=== PATIENT | male | born 1990 | race Caucasian/White ===

== ENCOUNTER 2019-02-07 18:33 | Inpatient (IN) | payer MEDICAID, SELFPAY ==
[2019-02-07] VITALS (72 sets, daily range): BP systolic 102–232; BP diastolic 52–211; PULSE 77–135; RESP 9–36; O2SAT 92–100
[2019-02-07] MEDS: Succinylcholine 100 MG/5 ML SYR IVP (18:47)
[2019-02-07] MEDS: Vecuronium 10 MG VIAL IVP (18:54)
[2019-02-07] MEDS: MIDAZOLAM 50 MG in Normal Saline 90 ML 7.128 MG IV (18:56)
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
[2019-02-07 19:36] LABS: Abs Immature Grans 0.06 k/cumm (0.0-0.09); Absolute Basophil Count 0.04 k/cumm (0.0-0.2); Absolute Eosinophil Count 0.14 k/cumm (0.0-0.7); Absolute Lymphocyte Count 2.09 k/cumm (1.2-3.4); Absolute Monocyte Count 0.36 k/cumm (0.11-0.7); Absolute Neutrophil Count 5.52 k/cumm (1.2-6.7); Basophils % 0.5; Eosinophils % 1.7; HCT 49.6 % (40.0-50.0); HGB 17.2 g/dL (13.5-17.5); Immature Grans % 0.7; Lymphocytes % 25.5; Mean Corp. HGB Concentration 34.7 g/dL (32.0-36.0); Mean Corpuscular Hemoglobin 30.7 pg (27.0-33.0); Mean Corpuscular Volume 88.4 fL (80-95); Mean Platelet Volume 9.9 fL (8.0-11.0); Monocytes % 4.4; Neutrophils % 67.2; Platelet Count 306 x1000/uL (130-400); RBC 5.61 m/cumm (4.50-6.00); RBC Distribution Width 13.2 % (11.8-14.1); White Blood Cell Count 8.21 k/cumm (4.4-10.8)
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
[2019-02-07 19:46] LABS: *AMPHETAMINES SCREEN URINE Negative (Negative); *BARBITURATES SCREEN URINE Negative (Negative); *BENZODIAZEPINES SCREEN URINE POSITIVE (Negative); Cannabinoids THC POSITIVE (Negative); Cocaine Screen,Urine Negative (Negative); METHADONE URINE SCREEN Negative (Negative); OPIATES URINE SCREEN POSITIVE (Negative)
[2019-02-07 19:52] LABS: ALT 26 U/L (16-63); AST 25 U/L (15-37); Albumin 4.5 g/dL (3.4-5.0); Alkaline Phosphatase 72 U/L (46-116); Anion Gap 5.7 mmol/L (3-11); BUN 6 mg/dL (7-18); Bilirubin, Total 0.5 mg/dL (0.2-1.0); CO2 27.3 mmol/L (21.0-32.0); CREATININE 0.67 mg/dL (0.70-1.30); Calcium 9.7 mg/dL (8.5-10.1); Chloride 106 mmol/L (98-107); ETHANOL BLOOD 161.7 mg/dL (<3); Glucose 107 mg/dL (74-106); Potassium 3.3 mmol/L (3.5-5.1); Sodium 139 mmol/L (136-145); Total Protein 8.4 g/dL (6.4-8.2)
[2019-02-07 19:53] LABS: Salicylate 5.9 mg/dL (2.8-20.0)
[2019-02-07] MEDS: Omnipaque 350 MG/ML 100 ML BTL IJ (19:59)
[2019-02-07 20:00] LABS: Troponin I < 0.05 ng/Ml (<0.06)
[2019-02-07 20:01] LABS: Tricyclic Antidepressants Negative (Negative)
[2019-02-07 20:01] LABS: Acetaminophen < 2 ug/mL (10-30)
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
[2019-02-07] MEDS: fentaNYL 1,000 MCG in Normal Saline 80 ML 8.91 MCG IV (20:13)
[2019-02-07] MEDS: PROPOFOL 1,000 MG/100 ML BTL 37.5 MG (20:57)
[2019-02-07] MEDS: PROPOFOL 1,000 MG/100 ML BTL 10.692 MG IVPB (21:05)
[2019-02-07] MEDS: PIPERACILLIN/TAZO 4.5 GM in Normal Saline 100 ML IVPB (21:41)
[2019-02-07 21:56] LABS: HCO3 (Venous) 26 mmol/L (22-28); O2 Sat (Venous) 98 % (70-80); TCO2 (Venous) 22 mmol/L (22-29); pCO2 (Venous) 44 mm/Hg (34-47); pH (Venous) 7.39 (7.32-7.43); pO2 (Venous) 111 mm/Hg (28-44)
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
[2019-02-07 23:01] LABS: Troponin I < 0.05 ng/Ml (<0.06)
[2019-02-07] MEDS: PROPOFOL 1,000 MG/100 ML BTL 34.749 MG IVPB (23:47)
[2019-02-08] VITALS (116 sets, daily range): BP systolic 90–133; BP diastolic 45–85; PULSE 47–99; RESP 1–20; TEMP 36.1–36.9; O2SAT 92–100
[2019-02-08] MEDS: PROPOFOL 1,000 MG/100 ML BTL 34.749 MG IVPB (02:21)
[2019-02-08] MEDS: fentaNYL 1,000 MCG in Normal Saline 80 ML 17.826 MCG IV ×2 (03:54→10:32)
[2019-02-08] MEDS: PIPERACILLIN/TAZO 4.5 GM in Normal Saline 100 ML IVPB ×4 (03:59→21:41)
[2019-02-08] MEDS: PROPOFOL 1,000 MG/100 ML BTL 37.422 MG IVPB (04:47)
[2019-02-08] MEDS: Heparin 5,000 UNITS/ML VIAL 5000 UNITS SC ×3 (05:46→21:51)
[2019-02-08 06:52] LABS: HCT 47.6 % (40.0-50.0); HGB 16.2 g/dL (13.5-17.5); Mean Corpuscular Hemoglobin 30.6 pg (27.0-33.0); Mean Corpuscular Volume 89.8 fL (80-95); Mean Platelet Volume 9.8 fL (8.0-11.0); Platelet Count 304 x1000/uL (130-400); RBC Distribution Width 13.4 % (11.8-14.1); White Blood Cell Count 13.97 k/cumm (4.4-10.8)
[2019-02-08 07:07] LABS: ALT 23 U/L (16-63); AST 24 U/L (15-37); Albumin 4.1 g/dL (3.4-5.0); Alkaline Phosphatase 66 U/L (46-116); Anion Gap 12.6 mmol/L (3-11); BUN 10 mg/dL (7-18); Bilirubin, Total 0.7 mg/dL (0.2-1.0); CO2 28.4 mmol/L (21.0-32.0); CREATININE 0.81 mg/dL (0.70-1.30); Calcium 9.2 mg/dL (8.5-10.1); Chloride 109 mmol/L (98-107); Glucose 89 mg/dL (74-106); Potassium 3.5 mmol/L (3.5-5.1); Sodium 150 mmol/L (136-145); Total Protein 7.5 g/dL (6.4-8.2)
[2019-02-08] MEDS: PROPOFOL 1,000 MG/100 ML BTL 40.1 MG IVPB (07:25)
--- NOTE | 2019-02-08 08:50 | PDOC.CMIN ---
Care Management Initial Assess REASON FOR HOSPITALIZATION:: Multisubstance intoxication with AMS and Aspiration PAST MEDICAL HISTORY/PAST SURGICAL HISTORY:: Mulitple substance abuse, reactive airway disease, tobacco dependence PREVIOUS FUNCTIONAL STATUS/SOCIAL/FAMILY SUPPORTS:: Gregorio resides in [place], [place]. His mother resides in [place]. CURRENT FUNCTIONAL STATUS:: Gregorio remains intubated at this time. Has patient been provided with information about the portal?: No Did the patient sign up for the portal?: No CODE STATUS:: Full Code INSURANCE COVERAGE / FINANCIAL ISSUES:: [employer] CURRENT HOME/COMMUNITY SERVICES/EQUIPMENT:: Unable to attain at this time. PRIMARY CARE PHYSICIAN:: Marcell Dupont NP POTENTIAL DISCHARGE NEEDS:: Undetermined at this time. PATIENT/FAMILY EDUCATION NEEDS:: Undetermined at this time. ANTICIPATED BARRIERS TO DISCHARGE:: Undetermined at this time. TRANSPORTATION:: TBD by disposition. PLAN:: Gregorio continues to be closely monitored in the ICU; he remains intubated and sedated at this time, per MD no plan to extubate today; treatment of aspiration pneumonia paramount at this time. CM continues to follow.
[2019-02-08] MEDS: POTASSIUM CHLORIDE/0.45% NACL 1,000 ML 80 MEQ IV (08:52)
[2019-02-08 09:09] LABS: Bilirubin Small (Negative); Blood Trace-intact (Negative); Clarity Clear (Clear); Glucose Negative (Negative); Ketones Trace mg/dL (Negative); Leukocyte Esterase Negative (Negative); Nitrite Negative (Negative); Specific Gravity 1.025 (1.005-1.025); Urobilinogen 0.2 EU/dL (Up TO 0.2); pH 5.5 (5-8)
[2019-02-08 09:21] LABS: Bacteria Negative HPF (Negative); Casts Negative LPF (Negative); Epithelial Cells Negative HPF (Negative); Mucus Trace (Negative); Other Cells Rare Renal (Negative); WBC 0-2 HPF (0-5)
[2019-02-08 09:22] LABS: C & S Indicated? No
[2019-02-08] MEDS: PROPOFOL 1,000 MG/100 ML BTL 53.5 MG IVPB ×2 (09:25→11:10)
[2019-02-08 09:33] LABS: Creatinine,Urine 268.25 mg/dL; Sodium, Urine 21 mmol/L
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
[2019-02-08 11:53] LABS: Procalcitonin < 0.1 ng/mL
[2019-02-08] MEDS: Pantoprazole 40 MG VIAL IVP (12:50)
[2019-02-08] MEDS: PROPOFOL 1,000 MG/100 ML BTL 42.8 MG IVPB (12:50)
[2019-02-08] MEDS: Normal Saline Flush 10 ML SYR IVP ×2 (12:51→17:13)
[2019-02-08] MEDS: Albuterol/Ipratropium 3 ML UPD VIAL UPD ×3 (13:03→23:55)
[2019-02-08 13:33] LABS: Anion Gap 7.7 mmol/L (3-11); BUN 14 mg/dL (7-18); CO2 29.3 mmol/L (21.0-32.0); Calcium 8.7 mg/dL (8.5-10.1); Chloride 110 mmol/L (98-107); Glucose 88 mg/dL (74-106); Potassium 3.8 mmol/L (3.5-5.1); Sodium 147 mmol/L (136-145)
[2019-02-08] MEDS: Normal Saline 1,000 ML 1000 ML IV (14:35)
[2019-02-08] MEDS: PROPOFOL 1,000 MG/100 ML BTL 58.8 MG IVPB (15:21)
[2019-02-08] MEDS: fentaNYL 1,000 MCG in Normal Saline 80 ML 26.73 MCG IV (16:05)
[2019-02-08 16:10] LABS: Osmolality Serum 298 mOsm/kg (275-295)
[2019-02-08 16:12] LABS: Osmolality, Urine 636 mOsm/kg (150-1,150)
[2019-02-08] MEDS: PROPOFOL 1,000 MG/100 ML BTL 40.095 MG IVPB ×3 (17:11→21:48)
[2019-02-08] MEDS: Nicotine 21 MG/24 HR PATCH TD (17:14)
[2019-02-08] MEDS: THIAMINE 100 MG in Normal Saline 100 ML 200 MG IVPB (18:42)
[2019-02-08] MEDS: POTASSIUM CHLORIDE/0.45% NACL 1,000 ML 150 MEQ IV (18:43)
[2019-02-08] MEDS: fentaNYL 1,000 MCG in Normal Saline 80 ML 17.82 MCG IV (21:45)
[2019-02-09] VITALS (39 sets, daily range): BP systolic 90–143; BP diastolic 46–93; PULSE 46–106; RESP 1–22; TEMP 36.4–37.6; O2SAT 95–100
[2019-02-09] MEDS: PROPOFOL 1,000 MG/100 ML BTL 42.8 MG IVPB ×3 (00:08→07:30)
[2019-02-09] MEDS: PIPERACILLIN/TAZO 4.5 GM in Normal Saline 100 ML IVPB ×2 (04:17→10:20)
[2019-02-09] MEDS: Normal Saline 500 ML 1000 ML IV (04:30)
[2019-02-09] MEDS: Heparin 5,000 UNITS/ML VIAL 5000 UNITS SC (06:24)
[2019-02-09] MEDS: fentaNYL 1,000 MCG in Normal Saline 80 ML 17.82 MCG IV (07:00)
[2019-02-09] MEDS: LORazepam 2 MG/ML VIAL 1 MG IVP ×2 (07:10→07:20)
[2019-02-09 07:50] LABS: BE -0.4 mmol/L (-3-3); HCO3 25 mmol/L (22-28); pCO2 44 mmHg (34-47); pO2 81 mmHg (83-108); sO2 96 % (94-98); tCO2 23 mmol/L (22-29)
[2019-02-09 07:52] LABS: FIO2 30 %; Site Left Radial
[2019-02-09 07:53] LABS: pH 7.36 (7.35-7.45)
[2019-02-09] MEDS: Albuterol/Ipratropium 3 ML UPD VIAL UPD (08:11)
--- NOTE | 2019-02-09 08:12 | DI.RAD_ITS ---
EXAM: XR PORTABLE CHEST AP INDICATION: acute respiratory failure; aspiration pneumonia. COMPARISON: CT CHEST/ABD/PEL W from 02/07/2019 TECHNIQUE: 2D digital imaging was performed. FINDINGS: The cardiac and mediastinal contours have a normal appearance. The lungs are moderately well inflate d and appear clear. Leads overlie the chest. An endotracheal tube is seen with the tip at the level of the clavicles. A nasogastric tube projects in the stomach. IMPRESSION: Satisfactory positioning of endotracheal and nasogastric tubes.
[2019-02-09] MEDS: MAGNESIUM SULFATE 8.12 MEQ, MULTIVITAMIN 10 ML, THIAMINE 100 MG, FOLIC ACID 1 MG in Nor... 168.867 MG IV (09:08)
--- NOTE | 2019-02-09 09:15 | CMPROGNOTE_ITS ---
Care Management Progress Note S/O: Gregorio continues to be treated for aspiration pneumonia, he remains sedated at this time, extubation to be attempted today per MD. He will be evaluated for suicidal ideation by a Crisis screener once stable as well as offered inpatient drug treatment resources. Post extubation, Gregorio became agitated and required intervention and code bethea response to remain safely at [facility]. He was screened by plate put in worker Bryanna of [facility] who cleared him to leave. Gregorio will be permitted to leave [place] if he so chooses. CM rec'd request for clothing as Gregorio was leaving AMA, though he remains at [facility] at this time; Dr. Mcnally discussed concerns for Gregorio leaving prior to completing treatment (IV ABX) for aspiration pneumoia. A: 28 year old male admitted to [facility] 02/07/19 for Multisubstance intoxication with AMS and Aspiration P: Gregorio continues to be closely monitored in the ICU, anticipate he will leave AMA, or be discharged home when ready per MD. If he remains at [facility], substance abuse resources and inpatient rehab information will be provided. CM continues to follow.
--- NOTE | 2019-02-09 09:15 | PDOC.CMPRO ---
Care Management Progress Note S/O: Gregorio continues to be treated for aspiration pneumonia, he remains sedated at this time, extubation to be attempted today per MD. He will be evaluated for suicidal ideation by a Crisis screener once stable as well as offered inpatient drug treatment resources. Post extubation, Gregorio became agitated and required intervention and code bethea response to remain safely at [facility]. He was screened by transfer and line up worker Bryanna of [facility] who cleared him to leave. Gregorio will be permitted to leave [place] if he so chooses. CM rec'd request for clothing as Gregorio was leaving AMA, though he remains at [facility] at this time; Dr. Mcnally discussed concerns for Gregorio leaving prior to completing treatment (IV ABX) for aspiration pneumoia. A: 28 year old male admitted to [facility] 02/07/19 for Multisubstance intoxication with AMS and Aspiration P: Gregorio continues to be closely monitored in the ICU, anticipate he will leave AMA, or be discharged home when ready per MD. If he remains at [facility], substance abuse resources and inpatient rehab information will be provided. CM continues to follow.
[2019-02-09 09:27] LABS: Procalcitonin < 0.1 ng/mL
[2019-02-09 09:28] LABS: Calcium 8.2 mg/dL (8.5-10.1)
[2019-02-09 09:29] LABS: Albumin 3.1 g/dL (3.4-5.0); Alkaline Phosphatase 58 U/L (46-116); Anion Gap 7.9 mmol/L (3-11); BUN 16 mg/dL (7-18); Bilirubin, Total 0.7 mg/dL (0.2-1.0); CO2 28.1 mmol/L (21.0-32.0); CREATININE 1.01 mg/dL (0.70-1.30); Chloride 110 mmol/L (98-107); Glucose 78 mg/dL (74-106); Potassium 3.9 mmol/L (3.5-5.1); Sodium 146 mmol/L (136-145); Total Protein 6.1 g/dL (6.4-8.2)
[2019-02-09 09:30] LABS: ALT 19 U/L (16-63); AST 27 U/L (15-37); HCT 42.1 % (40.0-50.0); HGB 13.8 g/dL (13.5-17.5); RBC 4.47 m/cumm (4.50-6.00); White Blood Cell Count 9.45 k/cumm (4.4-10.8)
[2019-02-09 09:31] LABS: Mean Corp. HGB Concentration 32.8 g/dL (32.0-36.0); Mean Corpuscular Hemoglobin 30.9 pg (27.0-33.0); Mean Corpuscular Volume 94.2 fL (80-95); Platelet Count 182 x1000/uL (130-400); RBC Distribution Width 13.8 % (11.8-14.1)
[2019-02-09 09:45] LABS: Absolute Lymphocyte Count 3.17 k/cumm (1.2-3.4); Absolute Monocyte Count 0.97 k/cumm (0.11-0.7); Absolute Neutrophil Count 4.77 k/cumm (1.2-6.7); Lymphocytes % 33.5; Monocytes % 10.3; Neutrophils % 50.5
[2019-02-09 09:46] LABS: Abs Immature Grans 0.02 k/cumm (0.0-0.09); Absolute Basophil Count 0.04 k/cumm (0.0-0.2); Absolute Eosinophil Count 0.48 k/cumm (0.0-0.7); Basophils % 0.4; Eosinophils % 5.1; Immature Grans % 0.2
[2019-02-09] MEDS: PROPOFOL 1,000 MG/100 ML BTL 37.4 MG IVPB (10:04)
[2019-02-09] MEDS: Normal Saline Flush 10 ML SYR IVP (10:21)
--- NOTE | 2019-02-09 11:00 | W.PM.PROGNOT ---
Date of Service Date of service: 02/09/19 Time of Service: 11:00 Assessment and Plan Assessment and plan (1) Aspiration pneumonia: Status: Acute Assessment and plan: Patient was treated with IV Zosyn. However he left the hospital AGAINST MEDICAL ADVICE prior to being able to set up an appropriate discharge plan and follow-up. Qualifiers: Aspiration pneumonia type: unspecified Laterality: bilateral Lung location: unspecified part of lung Qualified Code(s): J69.0 - Pneumonitis due to inhalation of food and vomit (2) Multiple substance abuse: Status: Acute Assessment and plan: Patient is a known heroin abuser by his own admission. According to his brother he is using 7-8 bags of heroin a day. Patient has declined referral for outpatient substance abuse treatment. (3) Altered mental status: Status: Acute Assessment and plan: His initial altered mental status was contributed by his acute alcohol intoxication and drug use. His altered mental status this morning was secondary to sedatives required to keep him intubated. By this afternoon medications he cleared and he had been in evaluated by mental health and deemed not appropriate for involuntary hospitalization. Qualifiers: Altered mental status type: delirium Qualified Code(s): R41.0 - Disorientation, unspecified (4) Alcohol intoxication: Status: Acute Assessment and plan: Resolved Qualifiers: Complication of substance-induced condition: with unspecified complication Qualified Code(s): F10.929 - Alcohol use, unspecified with intoxication, unspecified Subjective Subjective Interval history since last seen: Patient remained intubated and sedated on fentanyl and propofol drip earlier this morning. By mid to late morning we had discontinued his sedatives and after about 20 minutes he was combative. His rapid shallow breathing index was acceptable and as his oxygenation and ventilation were stable on spontaneous breathing trial and as his chest x-ray had improved it was decided that he was ready for extubation. Patient was extubated and immediately became combative and agitated and swearing at the staff and threatening to leave AGAINST MEDICAL ADVICE. Patient pulled out his IVs and his Perrin had been removed by the nursing staff. Patient's brother try to calm him down and together with the brother and the nursing staff we tried to explain the patient that he needed continued hospitalization for treatment of his aspiration pneumonia. Patient became demanding and unreasonable and threatening to leave AGAINST MEDICAL ADVICE while at the same time demanding that he be given IV pain medications even though he had pulled out his IVs. I felt that he was not competent to leave the hospital safely as I felt he was still under the influence of the propofol and the fentanyl. When he became violently combative with the nurses a karina pineda was called. Patient required four-point restraints to control him and was chemically sedated with Haldol 5 mg IM x1 and 10 mg IM x1 dose. He was also given Ativan 4 mg IM and fentanyl 100 mcg IM. He eventually calm down and seemed to be able to be reasoned with and initially was agreeable to remain in the hospital for 1 more night while we continued IV antibiotics. He initially agreed to let the nurses replace his IV. Eventually in the afternoon he became more agitated and combative and refused to remain in the hospital or to allow any IV access. Patient had been seen by mental health services and cleared from a psychiatric standpoint to be discharged from the hospital. As the patient had been off his propofol and fentanyl drip for a few hours it was felt that the sedatives had effectively worn off enough that he could be allowed to leave the hospital under the care of his brother. Since the patient had been deemed mentally clear to make his own decisions and could not be forcibly detained for further medical treatment the patient was allowed to leave AGAINST MEDICAL ADVICE without any further intervention. Exam Narrative Exam Narrative: Young male with the time of my examination was sedated and intubated. Lungs were clear to auscultation Heart regular rate and rhythm without murmur rub or gallop Abdomen soft nontender and nondistended with normoactive bowel sounds. Extremities without peripheral cyanosis or edema. At the time of his immediate post extubation patient was severely agitated combative not making any logical sense in his requests or statements. Because he was becoming physically as well as verbally abusive and presented a danger to himself and the staff I felt it imperative that he receive immediate chemical sedation. In order to achieve this he did require physical restraints including four-point limb restraints which required multiple staff to hold him down. This was accomplished only because it was felt that he was a danger to himself to leave the hospital during the immediate period after extubation as he was still under the influence of the propofol and fentanyl. Objective Objective Clinical Data: Abnormal lab results 02/08/19 02/09/19 02/09/19 Range/Units 13:15 06:20 06:20 RBC 4.47 L (4.50-6.00) m/cumm Absolute Monocytes 0.97 H (0.11-0.7) k/cumm pO2 (83-108) mmHg Sodium 147 H 146 H (136-145) mmol/L Chloride 110 H 110 H (98-107) mmol/L Calcium 8.2 L (8.5-10.1) mg/dL Total Protein 6.1 L (6.4-8.2) g/dL Albumin 3.1 L (3.4-5.0) g/dL 02/09/19 Range/Units 07:47 RBC (4.50-6.00) m/cumm Absolute Monocytes (0.11-0.7) k/cumm pO2 81 L (83-108) mmHg Sodium (136-145) mmol/L Chloride (98-107) mmol/L Calcium (8.5-10.1) mg/dL Total Protein (6.4-8.2) g/dL Albumin (3.4-5.0) g/dL Vital Signs Temperature 36.7 C 02/09/19 08:22 Temperature Source Temporal Artery Scan 02/08/19 22:37 Pulse 48 L 02/09/19 08:22 Pulse 54 L 02/09/19 08:20 Respiratory Rate 15 02/09/19 09:54 Respiratory Effort 02/09/19 08:22 Respiratory Depth Normal 02/09/19 08:22 Respiratory Pattern Normal 02/09/19 08:22 Blood Pressure 95/51 L 02/09/19 08:22 Blood Pressure Mean 65 02/09/19 08:22 Blood Pressure Position Supine 02/09/19 08:22 Pulse Oximetry 100 02/09/19 09:54 Respiratory End-tidal CO2 28 02/09/19 09:54 Oxygen Delivery Method Mechanical Ventilator 02/09/19 08:22 Oxygen Flow Rate 0 02/09/19 08:22 Fraction of Inspired Oxygen (FIO2) 21 02/09/19 09:58 End Tidal Co2 38 02/07/19 18:25 Pain Level 0 02/08/19 20:00 Intake & Output 02/08/19 02/08/19 02/09/19 11:59 23:59 11:59 Intake Total 974.086 / 3890.718 2916.632 / 3890.718 2450.615 / 2450.615 Output Total 880 / 2045 1165 / 2045 50 / 50 Balance 94.086 / 0369.196 7396.632 / 1483.016 5481.615 / 2400.615 Weight 89.1 kg Intake: IV 974.086 / 3890.718 2916.632 / 3890.718 2450.615 / 2450.615 Output: Gastric Drainage 400 / 1150 750 / 1150 Oral 400 / 1150 750 / 1150 Urine 480 / 895 415 / 895 50 / 50 Other: Urine Color Dark Charu Light Charu Dark Charu Brown Brown Urine Appearance Sediment Sediment Sediment Comment Perrni patent improving in clarity color and volume perrin patent, draining dark charu browninsh urine. Gastric Occult Blood Oral Negative Negative Negative Laboratory Results WBC 9.45 k/cumm (4.4-10.8) D 02/09/19 06:20 RBC 4.47 m/cumm (4.50-6.00) L 02/09/19 06:20 Hgb 13.8 g/dL (13.5-17.5) D 02/09/19 06:20 Hct 42.1 % (40.0-50.0) 02/09/19 06:20 MCV 94.2 fL (80-95) 02/09/19 06:20 MCH 30.9 pg (27.0-33.0) 02/09/19 06:20 MCHC 32.8 g/dL (32.0-36.0) 02/09/19 06:20 RDW 13.8 % (11.8-14.1) 02/09/19 06:20 Plt Count 182 x1000/uL (130-400) D 02/09/19 06:20 MPV 10.0 fL (8.0-11.0) 02/09/19 06:20 Immature Gran % 0.2 02/09/19 06:20 Neutrophils % 50.5 02/09/19 06:20 Lymphocytes % 33.5 02/09/19 06:20 Monocytes % 10.3 02/09/19 06:20 Eosinophils % 5.1 02/09/19 06:20 Basophils % 0.4 02/09/19 06:20 Absolute Neutrophils 4.77 k/cumm (1.2-6.7) 02/09/19 06:20 Absolute Lymphocytes 3.17 k/cumm (1.2-3.4) 02/09/19 06:20 Absolute Monocytes 0.97 k/cumm (0.11-0.7) H 02/09/19 06:20 Absolute Eosinophils 0.48 k/cumm (0.0-0.7) 02/09/19 06:20 Absolute Basophils 0.04 k/cumm (0.0-0.2) 02/09/19 06:20 Sample Site Left radial 02/09/19 07:47 pCO2 44 mmHg (34-47) 02/09/19 07:47 pO2 81 mmHg (83-108) L 02/09/19 07:47 O2 Saturation 96 % (94-98) 02/09/19 07:47 ABG pH 7.36 (7.35-7.45) 02/09/19 07:47 ABG HCO3 25 mmol/L (22-28) 02/09/19 07:47 ABG Total CO2 23 mmol/L (22-29) 02/09/19 07:47 ABG Base Excess -0.4 mmol/L (-3-3) 02/09/19 07:47 VBG pH 7.39 (7.32-7.43) 02/07/19 21:40 VBG pCO2 44 mm/Hg (34-47) 02/07/19 21:40 VBG pO2 111 mm/Hg (28-44) H 02/07/19 21:40 VBG HCO3 26 mmol/L (22-28) 02/07/19 21:40 VBG Total CO2 22 mmol/L (22-29) 02/07/19 21:40 VBG O2 Saturation 98 % (70-80) H 02/07/19 21:40 VBG Base Excess 1.0 mmol/L (-3-3) 02/07/19 21:40 FiO2 30 % 02/09/19 07:47 Sodium 146 mmol/L (136-145) H 02/09/19 06:20 Potassium 3.9 mmol/L (3.5-5.1) 02/09/19 06:20 Chloride 110 mmol/L (98-107) H 02/09/19 06:20 Carbon Dioxide 28.1 mmol/L (21.0-32.0) 02/09/19 06:20 Anion Gap 7.9 mmol/L (3-11) 02/09/19 06:20 BUN 16 mg/dL (7-18) 02/09/19 06:20 Creatinine 1.01 mg/dL (0.70-1.30) 02/09/19 06:20 Estimated GFR/1.73 m2 >= 60.00 (mL/min/1.73m2) 02/09/19 06:20 Glucose 78 mg/dL (74-106) 02/09/19 06:20 Calcium 8.2 mg/dL (8.5-10.1) L 02/09/19 06:20 Total Bilirubin 0.7 mg/dL (0.2-1.0) 02/09/19 06:20 AST 27 U/L (15-37) 02/09/19 06:20 ALT 19 U/L (16-63) 02/09/19 06:20 Alkaline Phosphatase 58 U/L (46-116) 02/09/19 06:20 Troponin I < 0.05 ng/Ml (<0.06) 02/07/19 21:40 Total Protein 6.1 g/dL (6.4-8.2) L 02/09/19 06:20 Albumin 3.1 g/dL (3.4-5.0) L 02/09/19 06:20 Procalcitonin < 0.1 ng/mL 02/09/19 06:20 Urine Color Yellow (Yellow) 02/08/19 08:30 Urine Clarity Clear (Clear) 02/08/19 08:30 Urine pH 5.5 (5-8) 02/08/19 08:30 Ur Specific [place] 1.025 (1.005-1.025) 02/08/19 08:30 Urine Protein Trace mg/dL (Negative) H 02/08/19 08:30 Urine Ketones Trace mg/dL (Negative) H 02/08/19 08:30 Urine Blood Trace-intact (Negative) H 02/08/19 08:30 Urine Nitrite Negative (Negative) 02/08/19 08:30 Urine Bilirubin Small (Negative) H 02/08/19 08:30 Urine Urobilinogen 0.2 EU/dL (Up TO 0.2) 02/08/19 08:30 Ur Leukocyte Esterase Negative (Negative) 02/08/19 08:30 Urine RBC 10-20 HPF (0-2) H 02/08/19 08:30 Urine WBC 0-2 HPF (0-5) 02/08/19 08:30 Ur Epithelial Cells Negative HPF (Negative) 02/08/19 08:30 Urine Crystals Many uric acid HPF (Negative) 02/08/19 08:30 Urine Bacteria Negative HPF (Negative) 02/08/19 08:30 Urine Casts Negative LPF (Negative) 02/08/19 08:30 Urine Mucus Trace (Negative) 02/08/19 08:30 Urine Other Rare renal (Negative) 02/08/19 08:30 Ur Culture Indicated? No 02/08/19 08:30 Ur Random Creatinine 268.25 mg/dL 02/08/19 08:30 Ur Random Sodium 21 mmol/L 02/08/19 08:30 Urine Glucose Negative mg/dL (Negative) 02/08/19 08:30 Salicylates 5.9 mg/dL (2.8-20.0) 02/07/19 18:40 Urine Opiates Screen Positive (Negative) A 02/07/19 19:00 Urine Methadone Screen Negative (Negative) 02/07/19 19:00 Acetaminophen < 2 ug/mL (10-30) L 02/07/19 18:40 Ur Barbiturates Screen Negative (Negative) 02/07/19 19:00 Ur Tricyclics Screen Negative (Negative) 02/07/19 19:00 Ur Amphetamines Screen Negative (Negative) 02/07/19 19:00 U Benzodiazepines Scrn Positive (Negative) A 02/07/19 19:00 Urine Cocaine Screen Negative (Negative) 02/07/19 19:00 Ur THC Screen Positive (Negative) A 02/07/19 19:00 Ethyl Alcohol 161.7 mg/dL (<3) 02/07/19 18:40 Patient ABO/Rh O Positive 02/07/19 18:40 Antibody Screen Negative 02/07/19 18:40
[2019-02-09] MEDS: Haloperidol 5 MG/ML VIAL (11:50)
[2019-02-09] MEDS: Haloperidol 5 MG/ML VIAL 10 MG IM (12:00)
[2019-02-09] MEDS: LORazepam 2 MG/ML VIAL 4 MG IVP (12:06)
[2019-02-09] MEDS: fentaNYL 100 MCG/2 ML VIAL IM (12:15)
[2019-02-09] MEDS: cloNIDine 0.1 MG TAB PO (13:16)
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
--- NOTE | 2019-02-09 15:04 | PHARADMIT ---
Admission Pharmacy Clinical Review multisubstance intoxication w/AMS and aspiration Code Status Full Code Current Weight 89.1 kg Renally Cleared and Narrow Therapeutic Index Meds Crcl ~121 mL/min current meds okay QTc Value / Action Taken none BP Control, Fever BP 136/77 Tmax 37.6 today Electrolytes reviewed Na 146 Cl 110 DVT Prophylaxis none Opiate Usage / Scheduled Bowel Regimen Ordered prn/prn docusate Plt/SCr for Heparin / Enoxaparin plt 182 SCr 1.01 INR for Warfarin n/a H/H stable, WBC/Bands h/h 13.8/42.1 WBC 9.45 Antibiotic appropriateness zosyn for aspiration pneumonia Cultures and Sensitivities sputum culture grew normal [facility] ABX d/c within 24 hr n/a DM control / Insulin Dosing BG 78 none Heart Failure (Check EF%) (CLAIRE's, B-Block, Diuretics) none IV to PO Switch n/a Home Meds Reviewed yes, all unconfirmed/old rx's Home Meds Not Ordered none ordered Comments pt was extubated today
== END 2019-02-09 15:45 | disposition left against medical advice (07) | DRG 208 ==
LOC: ER 21:41 → ICU 22:57
PROVIDERS: Admitting Provider Family Medicine; Emergency Provider Student in an Organized Health Care Education/Training Program; PCP Nurse Practitioner Family; Visit Provider Internal Medicine
DX: J69.0 Pneumonitis due to inhalation of food and vomit (principal); Z53.21 Procedure and treatment not carried out due to patient leaving prior to being seen by health care provider; F11.10 Opioid abuse, uncomplicated; F10.120 Alcohol abuse with intoxication, uncomplicated; Y90.6 Blood alcohol level of 120-199 mg/100 ml; R41.82 Altered mental status, unspecified; V89.2XXA Person injured in unspecified motor-vehicle accident, traffic, initial encounter; L98.9 Disorder of the skin and subcutaneous tissue, unspecified; Z78.1 Physical restraint status; F17.210 Nicotine dependence, cigarettes, uncomplicated
CPT/HCPCS: 31500; 36415; 36416; 51702; 74177; 80048; 80053; 80307; 82805; 82962; 83935; 84145; 85027; 86850; 86900; 86901; 96365; 96366; 96367; 96375; 99223; 99233; 99285; 36600; 70450; 71045; 71260; 72125; 80320; 80329; 81003; 81015; 82565; 83930; 84300; 84484; 85025; 87070; 87205; 94002; 94003; 94640; J1630; J1644; J2060; J2543; J3010; J3490; J7620

== ENCOUNTER 2019-02-10 13:10 | Emergency (ER) | payer MEDICAID, SELFPAY ==
[2019-02-10 13:16] VITALS: BP 155/86; PULSE 102; RESP 16; TEMP 36.7; O2SAT 99
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
[2019-02-10] MEDS: Acetaminophen 500 MG TAB 1000 MG PO (13:34)
[2019-02-10 13:42] VITALS: RESP 16
--- NOTE | 2019-02-10 13:42 | DI.RAD_ITS ---
EXAM: XR CHEST 2V PA LATERAL INDICATION: recent PNA. COMPARISON: No exams were available for comparison TECHNIQUE: 2D digital imaging was performed. FINDINGS: The cardiac and mediastinal contours have a normal appearance. The lungs are well inflated and clear . No infiltrate or effusion is seen. IMPRESSION: Negative chest x-ray.
== END 2019-02-10 14:27 | disposition other institution (70) ==
LOC: ER 14:42
PROVIDERS: Emergency Provider Emergency Medicine; PCP Nurse Practitioner Family
DX: M25.512 Pain in left shoulder (principal); J02.9 Acute pharyngitis, unspecified; V86.55XA Driver of 3- or 4- wheeled all-terrain vehicle (ATV) injured in nontraffic accident, initial encounter; F11.90 Opioid use, unspecified, uncomplicated; Z53.29 Procedure and treatment not carried out because of patient's decision for other reasons
CPT/HCPCS: 99283; 71046

== ENCOUNTER 2019-04-15 10:04 | Emergency (ER) | payer MEDICAID, SELFPAY ==
[2019-04-15 10:10] VITALS: BP 179/102; PULSE 112; RESP 15; TEMP 36.5; O2SAT 95
[2019-04-15 10:19] VITALS: BP 148/93; PULSE 108; RESP 16; TEMP 36.7; O2SAT 99
[2019-04-15 10:20] VITALS: BP 148/93; PULSE 108; RESP 16; TEMP 36.7; O2SAT 99
--- NOTE | 2019-04-15 12:58 | W.ED.GENAD ---
Discharge Plan Disposition Patient Disposition: AGAINST MEDICAL ADVICE Condition: Fair Discharge Details Chief Complaint: OD/Poison Clinical Impression: Opiate overdose Primary Care Provider: Leyla Paris ED Provider: Leyla Paris Home Meds and New Rx's Prescriptions: No Action buprenorphine-naloxone [Suboxone] 12-3 mg Film 1 film BUCCAL Q24H RF: 0 Discharge Instructions Instructions: Narcotic Abuse (ED) Additional Instructions: You have elected to leave the emergency department AGAINST MEDICAL ADVICE. The risks of leaving his medical advice include or permanent disability. You may return to the emergency department anytime if you change your mind. Please do not use heroin or any other opiate. Please return immediately to the emergency department if you develop any new or worsening symptoms, if your condition does not improve as expected, or if you become otherwise concerned. It is extremely important that you call soon as possible to make an appointment to be seen in follow-up for this visit by your primary care doctor. Discharge Data Discharge Date/Time-TO BE ENTERED AT DEPARTURE: 04/15/19 10:31 Medical Decision Making Gregorio Padgett is a 29-year-old man with a history of opiate dependence who presented to the emergency room unconscious and cyanotic in the back of a car with bradypnea and normal pulse, regained consciousness after intranasal Narcan. Patient's friends left in the emergency department parking lot, not available to obtain history from. Patient is now well and nontoxic appearing. Patient has a nonfocal neurologic exam and he is oriented x3. Plan for EKG, IV fluid hydration, screening labs, observation on telemetry. EKG performed, no STEMI. He is stating repeatedly that he has no symptoms, that he does not want any further evaluation and would like to leave. I had a lengthy discussion with the patient regarding patient's condition and the fact that he was given Narcan, and the possibility that Narcan could wear off prior to heroin that is still in his system, and he could again become apneic and . I also discussed other risks of leaving including or permanent disability from other undiagnosed pathology given his only very brief evaluation in the emergency department without diagnostics for complete history. 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 Patient states that he does have Narcan at home and refuses prescription at this time. Patient has decision-making capacity and capacity for informed refusal. I had a lengthy discussion with Patient regarding return to emergency department precautions, that he may return to the emergency department at any time if he changes his mind, home care, and importance of outpatient follow-up. Pt verbalizes understanding of the plan and is amenable. Patient discharged to home with clear plan for outpatient follow-up. All questions were answered. Disposition decision was made weighing the risks and benefits of hospitalization versus outpatient treatment, the risk for further decompensation, and the patient's wishes. Medical Records Medical records reviewed: Yes I reviewed the patient's medical records. ECG Data Attestation: I personally reviewed and interpreted this ECG (s) as follows: Interpretation: EKG shows sinus tachycardia at 112, normal axis, no STEMI, nondiagnostic EKG HPI General Date/Time Provider Initiated Documentation: 04/15/19 10:15. Information obtained by: patient, RN notes reviewed and old records reviewed. HPI Narrative: Gregorio Padgett is a 29-year-old man with history of heroin dependence presenting to the emergency department with loss of responsiveness. Patient was brought to the emergency department in a private car, was unconscious in the backseat. Patient was given intranasal Narcan while still in the vehicle by ED staff, was bagged and brought emergently back to the emergency department on stretcher. Well in the hallway en route to exam room, patient regained consciousness. Patient states that he snorted heroin this morning. He states that he is supposed to be on Suboxone but has not had any for the past few days. Patient reporting that he feels very well and would like to leave the emergency department. He denies any recent illness. He denies any pain or any current symptoms. He denies any other drug use other than intranasal heroin. Related Data Home Medications Medication Instructions Recorded Confirmed buprenorphine-naloxone [Suboxone] 1 film BUCCAL Q24H 04/15/19 04/15/19 Allergies Allergy/AdvReac Type Severity Reaction Status Date / Time No Known Allergies Allergy Unverified 04/15/19 10:17 General Stated Complaint: OD/Poison HUNTER: 1 Review of Systems Narrative: Constitutional: denies fevers Eyes: denies eye pain ENT: denies ear pain, dental pain, sore throat Cardiovascular: denies chest pain Respiratory: denies SOB, cough GI: denies abdominal pain, vomiting : denies flank pain MSK: denies back pain, neck pain, arthralgias, myalgias Skin: denies rash Neuro: denies headaches, weakness PFSH Social History Smoking/Tobacco Use Status: Current every day Alcohol Intake: current Alcohol Intake frequency: a few times a month Details: has not had Suboxone x 2-3 days--snorted heroin [employer] Additional Social history: is Homeless Exam Narrative Exam Narrative: Constitutional: Initially cyanotic with respiratory rate approximately 6 while in the back of vehicle, in exam room normal color, well and [id number], pleasant, conversing normally HENT: head atraumatic/normocephalic/normal inspection, mucous membranes moist Eyes: conjunctiva normal, sclera normal, pupils 3mm b/l Neck: no stridor, normal ROM, trachea midline Chest: normal inspection Resp: normal work of breathing, LCTAB Cardio: normal rate, normal rhythm, no murmur appreciated GI: abdomen soft, non-tender, non-distended Skin: warm, dry, normal color, no rash Neuro: alert, not altered, grossly non-focal, normal tone, normal gait, oriented x3 Ext: no edema Psych: normal mood, normal affect, normal behavior Course Vital Signs Vital signs: Vital Signs Temperature 36.5 C 04/15/19 10:10 Pulse 112 H 04/15/19 10:10 Respiratory Rate 15 04/15/19 10:10 Blood Pressure 179/102 H 04/15/19 10:10 Pulse Oximetry 95 04/15/19 10:10 Temperature 36.7 C 04/15/19 10:20 Temperature Source Temporal Artery Scan 04/15/19 10:19 Pulse 108 H 04/15/19 10:20 Respiratory Rate 16 04/15/19 10:20 Respiratory Effort 04/15/19 10:22 Blood Pressure 148/93 H 04/15/19 10:20 Blood Pressure Position Supine 04/15/19 10:10 Pulse Oximetry 99 04/15/19 10:20 Oxygen Delivery Method Room Air 04/15/19 10:19 Oxygen Flow Rate 0 04/15/19 10:19
== END 2019-04-15 10:31 | disposition left against medical advice (07) ==
LOC: ER 10:43
PROVIDERS: Emergency Provider Student in an Organized Health Care Education/Training Program; PCP Student in an Organized Health Care Education/Training Program
DX: T40.1X1A Poisoning by heroin, accidental (unintentional), initial encounter (principal); F11.20 Opioid dependence, uncomplicated; R40.20 Unspecified coma; Z53.29 Procedure and treatment not carried out because of patient's decision for other reasons
CPT/HCPCS: 93005; 99283; 93010; 99284; J2310

== ENCOUNTER 2019-08-07 09:39 | Emergency (ER) | payer MEDICAID, SELFPAY ==
[2019-08-07 09:45] VITALS: BP 130/79; PULSE 107; RESP 18; TEMP 37.7; O2SAT 97
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
--- NOTE | 2019-08-07 10:00 | DI.CT_ITS ---
EXAM: CT CHEST/ABD/PEL W TECHNIQUE: CT examination of the chest, abdomen, and pelvis was performed with bolus infusion of 100 cc of Omnipaque 350. COMPARISON: CT CT CHEST/ABD/PEL W from 02/07/2019 FINDINGS: There is no evidence of a thoracic vascular injury. The lungs are clear. No pneumothorax or pleural effusion. No mediastinal hematoma. No adenopathy in the chest. Tracheobronchial tree appears intact. The liver, spleen, and pancreas appear normal. Gallbladder and bile ducts are normal. Adrenals and kidneys are unremarkable. No evidence of urinary tract injury or obstruction. No abdominal or pelvic vascular injury seen. No abdominal or pelvic adenopathy. No significant abdomi nal wall hernia or hematoma. No evidence of bowel injury. No fracture identified in the region surveyed. There is a large hematoma of the right anterior thigh with opacified hematoma present consistent with active arterial bleeding. This appears to involve the tensor fascia alesia muscle. Additional subcut aneous hemorrhage/edema noted. IMPRESSION: Actively bleeding right anterior thigh hematoma as described above. No additional injury seen. RADIATION DOSE DELIVERED: 1,284.21mGy.cm Total DLP DATA REPOSITORY: All CT scans at this facility are submitted to the National Radiology Data Registry (NRDR) Dose Index Registry (DIR) with the [employer] ([employer]). RADIATION OPTIMIZATION: All CT scans at this facility use at least one of these dose optimization te chniques: automated exposure control; mA and/or kV adjustment per patient size (includes targeted exa ms where dose is matched to clinical indication); or iterative reconstruction.
--- NOTE | 2019-08-07 10:00 | DI.CT_ITS ---
EXAM: CT HEAD CERVICAL SPINE WO COMPARISON: CT CT HEAD CERVICAL SPINE WO from 02/07/2019 FINDINGS: CT examination of the cervical spine was performed without contrast administration. There is no evide nce of acute cervical spine fracture or dislocation. Tracheolaryngeal structures appear intact. No ce rvical mass or adenopathy. Intervertebral disc spaces are well maintained. Noncontrast cranial CT was performed. Ventricular system is normal in appearance. No evidence of acut e intracranial hemorrhage, mass effect, or midline shift. No calvarial fracture. The orbital and temp oral bone structures appear intact. IMPRESSION: No evidence of acute cervical spine injury. No evidence of acute intracranial injury. RADIATION DOSE DELIVERED: 1,341.77mGy.cm Total DLP DATA REPOSITORY: All CT scans at this facility are submitted to the National Radiology Data Registry (NRDR) Dose Index Registry (DIR) with the [employer] (A[employer]). RADIATION OPTIMIZATION: All CT scans at this facility use at least one of these dose optimization te chniques: automated exposure control; mA and/or kV adjustment per patient size (includes targeted exa ms where dose is matched to clinical indication); or iterative reconstruction.
--- NOTE | 2019-08-07 10:00 | DI.RAD_ITS ---
EXAM: XR FEMUR RT CLINICAL HISTORY: trauma TECHNIQUE: COMPARISON: No exams were available for comparison FINDINGS: Four views were obtained. No fracture is seen. IMPRESSION:
[2019-08-07 10:08] LABS: Abs Immature Grans 0.02 k/cumm (0.0-0.09); Absolute Basophil Count 0.03 k/cumm (0.0-0.2); Absolute Eosinophil Count 0.24 k/cumm (0.0-0.7); Absolute Lymphocyte Count 2.32 k/cumm (1.2-3.4); Absolute Monocyte Count 0.96 k/cumm (0.11-0.7); Absolute Neutrophil Count 7.09 k/cumm (1.2-6.7); Basophils % 0.3; Eosinophils % 2.3; HCT 42.7 % (40.0-50.0); Immature Grans % 0.2 %; Lymphocytes % 21.8; Mean Corp. HGB Concentration 35.1 g/dL (32.0-36.0); Mean Corpuscular Hemoglobin 30.9 pg (27.0-33.0); Mean Corpuscular Volume 87.9 fL (80-95); Mean Platelet Volume 9.3 fL (8.0-11.0); Neutrophils % 66.4; Platelet Count 277 x1000/uL (130-400); RBC 4.86 m/cumm (4.50-6.00); RBC Distribution Width 13.4 % (11.8-14.1); White Blood Cell Count 10.66 k/cumm (4.4-10.8)
[2019-08-07] MEDS: MORPHine 10 MG/ML VIAL 2 MG IVP ×2 (10:09→12:06)
[2019-08-07] MEDS: Normal Saline Flush 10 ML SYR IVP ×2 (10:09→11:18)
[2019-08-07] MEDS: Normal Saline 1,000 ML 1000 ML IV (10:15)
[2019-08-07 10:22] LABS: ALT 22 U/L (16-63); AST 18 U/L (15-37); Albumin 4.2 g/dL (3.4-5.0); Alkaline Phosphatase 60 U/L (46-116); Anion Gap 11.4 mmol/L (3-11); BUN 13 mg/dL (7-18); Bilirubin, Total 1.6 mg/dL (0.2-1.0); CO2 23.6 mmol/L (21.0-32.0); Calcium 8.8 mg/dL (8.5-10.1); Chloride 101 mmol/L (98-107); Glucose 141 mg/dL (74-106); INR 1.1 (0.9-1.1); Magnesium 1.7 mg/dL (1.8-2.4); Potassium 3.5 mmol/L (3.5-5.1); Sodium 136 mmol/L (136-145); Total Protein 7.4 g/dL (6.4-8.2)
[2019-08-07] MEDS: Omnipaque 350 MG/ML 100 ML BTL IJ (11:17)
[2019-08-07] MEDS: Normal Saline - Diluent 50 ML VIAL IV (11:17)
[2019-08-07 11:30] VITALS: BP 132/72; PULSE 77; RESP 14; O2SAT 98
[2019-08-07 12:18] VITALS: BP 110/60; PULSE 78; O2SAT 97
[2019-08-07 13:15] VITALS: RESP 18
[2019-08-07 13:22] VITALS: BP 112/75; PULSE 67; RESP 18; TEMP 36.6; O2SAT 99
== END 2019-08-07 13:21 | disposition short-term general hospital (02) ==
LOC: ER 12:09
PROVIDERS: Emergency Provider Registered Nurse Emergency; PCP Physician Assistant
DX: S70.11XA Contusion of right thigh, initial encounter (principal); M25.511 Pain in right shoulder; S30.810A Abrasion of lower back and pelvis, initial encounter; V03.10XA Pedestrian on foot injured in collision with car, pick-up truck or van in traffic accident, initial encounter; R06.00 Dyspnea, unspecified
CPT/HCPCS: 36415; 73552; 74177; 80053; 80307; 86850; 86900; 86901; 96361; 96374; 96376; 99291; 70450; 71260; 72125; 81003; 83735; 85025; 85610; J2270; J3490

== ENCOUNTER 2020-03-09 20:20 | Emergency (ER) | payer MEDICAID, SELFPAY ==
--- NOTE | 2020-03-09 20:15 | RT.EKG_ITS ---
APPROVED REPORT Exam: Resting ECG Patient Location: E HR:74 bpm ECG Measurements Heart Rate 74 AXIS OK 172 P 51 QRSd 108 QRS 80 QT 369 T 45 QTc 411 Conclusion Sinus rhythm...normal P axis, V-rate 60- 99
--- NOTE | 2020-03-09 20:24 | W.ED.GENAD ---
Discharge Plan Disposition Patient Disposition: HOME Condition: Improving Discharge Details Clinical Impression: Acute respiratory infection, Asthma Primary Care Provider: Gregorio Morales ED Provider: Giulia Perera Home Meds and New Rx's Prescriptions: New doxycycline hyclate 100 mg capsule 100 mg PO BID 5 Days Qty: 10 RF: 0 albuterol sulfate 90 mcg/actuation HFA aerosol inhaler 2 puff inhalation Q6H PRN (Reason: shortness of breath or wheezing) Qty: 6.7 RF: 0 Continued albuterol sulfate 8.5 GM HFA aerosol inhaler 2 puff Inhalation Q4H PRN PRNQty: 1 RF: 0 buprenorphine-naloxone [Suboxone] 8-2 mg film 1 film buccal DAILY RF: 0 gabapentin 800 mg tablet 800 mg PO DAILY RF: 0 Discharge Instructions Instructions: Doxycycline (By mouth), Albuterol (By breathing), Asthma (ED) Additional Instructions: Your x-ray is concerning for potentially developing pneumonia. Antibiotics as prescribed. Even if symptoms improve, please take the entire course. You may use the albuterol inhaler, 2 puffs every 6 hours as needed for wheezing, tightness or shortness of breath. Please follow-up with your primary care provider next week for reevaluation. Your COVID-19 testing is pending. Please quarantine until results have returned. If you develop increased difficulty breathing, shortness of breath, chest pain or, inability to hydrate or other new/worsening symptom please seek care urgently once again. Referrals: Gregorio Morales [Primary Care Provider] - Medical Decision Making Patient is a pleasant 30-year-old male past medical history of asthma. He is presenting today with chief complaint of URI. States that began last night. Endorses sore throat, congestion, cough, wheezing. He states he used what was left of his albuterol inhaler last night. States this did help with the wheezing. However, ran out today. No known sick contacts. States that he did have chills last night. Has been afebrile today. Denies any GI upset. No rash. On exam, patient appears nontoxic. He is scattered expiratory wheezing. No evidence of respiratory distress. Mild erythema posterior oropharynx. Patient is status post tonsillectomy. History exam is not consistent with pulmonary embolism. He is a smoker which I encouraged that he stop. His history exam is most consistent with viral pathology in the setting of asthma exacerbation. Plan to obtain COVID-19 testing, portable chest x-ray and give albuterol inhaler. EKG reviewed by Dr. Luis. Patient is normal sinus rhythm with a rate of 74, no acute ischemic changes noted. FINDINGS: Lungs: There is subtle patchy right lower lobe opacity with streaky retrocardiac/lower lobe opacity. Upper lobes are clear. Pleural space: No pleural effusion. No pneumothorax. Heart/Mediastinum: Cardiomediastinal contours within normal limits. Bones/joints: No acute osseous finding. IMPRESSION: Subtle patchy right lower lobe opacity with streaky retrocardiac/left lower lobe opacity. Correlate clinically for infection versus atelectasis. I discussed these findings with the patient. Discussed her treatment options. There is question for opacity, plan to treat for bacterial pneumonia. We will treat with doxycycline. He and I did discuss plus/minus of steroids. At this time, we will hold off. He is feeling significantly improved after using the albuterol inhaler. We will refill this for him. I have asked that he follow-up with primary care in 1 week for reevaluation. Return precautions were discussed. He will quarantine until his COVID-19 testing is back. All his questions and concerns were addressed and he is in agreement this plan. HPI General Mode of arrival: ambulatory. Date/Time Provider Initiated Documentation: 03/09/20 20:24. Limitations to Documentation: no limitations. Information obtained by: patient and RN notes reviewed. History of Present Illness 30 year old M presents to the emergency department with the chief complaint of cough, congestion, SOB, wheezing, described as mild, Quality is described as other (denies pain), Patient started experiencing this day(s) (began last night) and it has been constant. No relieving factors improve symptom(s), No exacerbating factors reported . Patient notes cough, fever/chills and shortness of breath (feels like asthma historically, feels tight and wheezing); denies chest pain, diaphoresis, headaches, loss of appetite, nausea/vomiting, rash and weakness. Patient did receive the following treatments prior to arrival, other (dayquil) Related Data Home Medications Medication Instructions Recorded Confirmed albuterol sulfate 2 puff INHALATION Q4H PRN PRN #1 02/26/14 03/09/20 [email or web address] albuterol sulfate 2 puff INHALATION Q6H PRN #6.7 g 03/09/20 buprenorphine-naloxone [Suboxone] 1 film BUCCAL DAILY 03/09/20 03/09/20 doxycycline hyclate 100 mg PO BID 5 Days #10 cap 03/09/20 gabapentin 800 mg PO DAILY 03/09/20 03/09/20 Previous Rx's Medication Instructions Recorded albuterol sulfate 2 puff INHALATION Q4H PRN PRN #1 02/26/14 [email or web address] albuterol sulfate 2 puff INHALATION Q6H PRN #6.7 g 03/09/20 doxycycline hyclate 100 mg PO BID 5 Days #10 cap 03/09/20 Allergies Allergy/AdvReac Type Severity Reaction Status Date / Time No Known Allergies Allergy Unverified 08/07/19 09:54 General HUNTER: 2 Review of Systems Constitutional Constitutional: Reports as per HPI, Reports chills, Denies fever(s), Denies headache(s), Denies poor appetite and Denies weakness Eyes Eyes: Reports as per HPI, Denies eye discharge and Denies irritation ENT Ears, Nose, Mouth, and Throat: Reports as per HPI and Denies headache(s) Cardiovascular Cardiovascular: Reports as per HPI, Denies chest pain and Reports dyspnea Respiratory Respiratory: Reports as per HPI, Denies chest congestion, Reports cough, Denies hemoptysis, Denies excessive phlegm production, Denies pain on inspiration, Denies pain with cough, Reports dyspnea and Reports wheezing Gastrointestinal Gastrointestinal: Reports as per HPI, Denies abdominal pain, Denies change in bowel habits, Denies nausea and Denies vomiting Integumentary/Breasts Skin/Breast: Reports as per HPI and Denies rash Neurologic Neurologic: Reports as per HPI, Denies headache(s) and Denies weakness Allergic/Immunologic Allergic/Immunologic: Reports wheezing [facility] Medical History (Updated 03/09/20 @ 21:29 by DANTE Longoria) Multiple substance abuse Reactive airway disease Tobacco dependence Social History Smoking/Tobacco Use Status: Current every day Tobacco Type: cigarettes Smoking risk assessment performed?: Yes Alcohol Intake: current Alcohol Intake frequency: a few times a month Drug use: Current Sobriety Substance use type: marijuana Do you feel safe at home: Yes Do you feel safe in your relationship?: Yes Additional Social history: is Homeless Exam Const General: cooperative, healthy appearing, comfortable, no acute distress, well developed and well groomed Nutritional Appearance: average body habitus and well nourished Orientation: alert and awake [facility] Head: normal to inspection, normocephalic and atraumatic Ears: hearing grossly normal bilaterally, external ears normal and TM's normal bilaterally General nose exam: external nose normal and nares normal Face and sinus: normal facial exam, sinuses nontender and face symmetric Mouth: oral mucosae normal, lip normal, tongue normal, oropharynx normal and moist mucous membranes Teeth and gingiva: dentition normal Throat: posterior oropharynx abnormal (slightly red), uvula midline and tonsils absent Eyes General: appearance normal, both eyes and all related structures Neck Neck: normal visual inspection, full ROM, no lymphadenopathy and no meningeal signs Resp Effort & Inspection: normal respiratory effort, able to speak in complete sentences and no respiratory distress Auscultation: no rales, no rhonchi and wheezes expiratory wheezes and scattered wheezes Cardio Rate: regular rate Rhythm: regular rhythm Heart Sounds: S1 normal and S2 normal Skin General skin exam: no rashes or lesions noted Neuro General: patient alert and patient awake Cognition: normal cognition Speech: speech normal Gait: normal gait Psych Appearance: grossly normal and well kempt Mental Status: mental status grossly normal Speech and Movement: speech and movement normal
[2020-03-09 20:26] VITALS: BP 123/81; PULSE 88; RESP 15; TEMP 37.1; O2SAT 97
[2020-03-09] MEDS: Albuterol HFA 8 GM 60 PUFF INH IH (21:00)
--- NOTE | 2020-03-09 21:06 | DI.RAD_ITS ---
EXAM: XR PORTABLE CHEST AP CLINICAL HISTORY: cough, wheezing. TECHNIQUE: 2D digital imaging was performed. COMPARISON: CR XR CHEST 2V PA LATERAL from 02/10/2019 FINDINGS: Heart size is normal. The mediastinum is not widened. There is subtle infiltrate in the lower right lung field. Left lung appears clear. No pleural effus ions IMPRESSION: Possible very subtle right lung base infiltrate. No pleural effusions. DATA REPOSITORY: RADIATION DOSE DELIVERED:
--- NOTE | 2020-03-09 21:16 | DI.VRAD_ITS ---
PROCEDURE INFORMATION: Exam: XR Chest, 1 View Exam date and time: 03/09/2020 8:48 PM Age: 30 years old Clinical indication: Cough and wheezing TECHNIQUE: Imaging protocol: XR of the chest Views: 1 view. COMPARISON: CT CHEST/ABD/PEL W 08/07/2019 10:48 AM FINDINGS: Lungs: There is subtle patchy right lower lobe opacity with streaky retrocardiac/lower lobe opacity. Upper lobes are clear. Pleural space: No pleural effusion. No pneumothorax. Heart/Mediastinum: Cardiomediastinal contours within normal limits. Bones/joints: No acute osseous finding. IMPRESSION: Subtle patchy right lower lobe opacity with streaky retrocardiac/left lower lobe opacity. Correlate clinically for infection versus atelectasis. Dictated and Authenticated by: Jaydon Montoya MD. Ordering:BIB Platt MD
[2020-03-09] MEDS: Doxycycline Hyclate 100 MG CAP 200 MG PO (21:32)
--- NOTE | 2020-03-09 21:45 | NUR.NOTE ---
Feeling better after inhaler, decreased wheezing. scripts given. aware to quarantine until covid results.
[2020-03-11 14:39] LABS: COVID-19 RT-PCR UVMMC Result Negative (Negative)
--- NOTE | 2020-03-11 18:58 | NUR.NOTE ---
spoke with pt to advise of negative COVID-19 test result CLT 03/11/20 @ 9799 Nursing Note:
== END 2020-03-09 21:45 | disposition home or self-care (01) ==
PROVIDERS: Emergency Provider Physician Assistant; PCP Physician Assistant
DX: J45.901 Unspecified asthma with (acute) exacerbation (principal); J22 Unspecified acute lower respiratory infection; F17.210 Nicotine dependence, cigarettes, uncomplicated; Z03.818 Encounter for observation for suspected exposure to other biological agents ruled out
CPT/HCPCS: 93005; 99284; U0003; 71045; 93010; 99285

== ENCOUNTER 2020-07-04 21:34 | Emergency (ER) | payer MEDICAID, SELFPAY ==
--- NOTE | 2020-07-04 21:36 | W.ED.GENAD ---
Discharge Plan Disposition Patient Disposition: HOME Condition: Stable Discharge Details Clinical Impression: Pain, dental, Asthma Primary Care Provider: Gregorio Morales ED Provider: Tobias Luis Home Meds and New Rx's Prescriptions: New amoxicillin-pot clavulanate [Augmentin] 875-125 mg tablet 1 tab PO BID Qty: 14 RF: 0 prednisone 20 mg tablet 60 mg PO DAILY 4 Days Qty: 12 RF: 0 Continued albuterol sulfate 8.5 GM HFA aerosol inhaler 2 puff Inhalation Q4H PRN PRNQty: 1 RF: 0 buprenorphine-naloxone [Suboxone] 8-2 mg film 1 film buccal DAILY RF: 0 gabapentin 800 mg tablet 800 mg PO DAILY RF: 0 albuterol sulfate 90 mcg/actuation HFA aerosol inhaler 2 puff inhalation Q6H PRN (Reason: shortness of breath or wheezing) Qty: 6.7 RF: 0 Discharge Instructions Instructions: Asthma (ED), Toothache (ED) Additional Instructions: follow up with a dentist as soon as possible return to the emergency department for difficulty swallowing liquids, difficulty breathing, fevers or severe worsening of pain Medical Decision Making 30 yo male comes in with left lower molar pain similar to prior dental infections he has had and also feels he has bronchitis as he feels wheezy. He states for the last several days he has left lower molar pain posteriorly. Denies fever, difficulty breathing or swallowing. He has numerous eroded teeth. His left posterior lower molar is eroded and has pain with percussion. No swelling, no submandibular swelling. Is swallowing normally and is speaking normally. Has no restricted neck movements and no pain over the hyoid, no findings to suggest ludwigs, retropharyngeal abscess or peritonsillar abscess. Will start him on antibiotics for likely dental infection and have him follow up with his dentist. He also notes that he has been feeling wheezy in his chest and ran out of his albuterol a few weeks ago. No fever or cough or dyspnea. Is speaking in full sentences on exam. Does have mild wheezing in the apices on exam otherwise clear lungs. Doubt pneumonia and has no fever, appears well and has normal oxygenation so do not feel chest xray indicated. Will refill his albuterol and start on prednisone and advised to follow up with his pcp, return precautions given Differential Diagnosis Differential Diagnosis: caries, abscess, pulpitis, asthma HPI General Mode of arrival: ambulatory. Date/Time Provider Initiated Documentation: 07/04/20 21:35. Limitations to Documentation: no limitations. Information obtained by: patient. History of Present Illness 30 year old M presents to the emergency department with the chief complaint of dental pain, described as moderate, Quality is described as aching, and is localized to the mouth. Patient reports no radiation. and it has been constant. No relieving factors improve symptom(s), No exacerbating factors reported . Patient notes no other symptoms.. Related Data Home Medications Medication Instructions Recorded Confirmed albuterol sulfate 2 puff INHALATION Q4H PRN PRN #1 02/26/14 07/04/20 [email or web address] albuterol sulfate 2 puff INHALATION Q6H PRN #6.7 g 03/09/20 07/04/20 buprenorphine-naloxone [Suboxone] 1 film BUCCAL DAILY 03/09/20 07/04/20 gabapentin 800 mg PO DAILY 03/09/20 07/04/20 amoxicillin-pot clavulanate 1 tab PO BID #14 tab 07/04/20 [Augmentin] prednisone 60 mg PO DAILY 4 Days #12 tab 07/04/20 Previous Rx's Medication Instructions Recorded albuterol sulfate 2 puff INHALATION Q4H PRN PRN #1 02/26/14 [email or web address] albuterol sulfate 2 puff INHALATION Q6H PRN #6.7 g 03/09/20 amoxicillin-pot clavulanate 1 tab PO BID #14 tab 07/04/20 [Augmentin] prednisone 60 mg PO DAILY 4 Days #12 tab 07/04/20 Allergies Allergy/AdvReac Type Severity Reaction Status Date / Time No Known Allergies Allergy Unverified 07/04/20 21:40 General HUNTER: 2 Review of Systems All systems reviewed & are unremarkable except as noted in HPI and below Constitutional Constitutional: Denies chills and Denies fever(s) Cardiovascular Cardiovascular: Denies chest pain and Denies dyspnea Respiratory Respiratory: Denies cough and Denies dyspnea Gastrointestinal Gastrointestinal: Denies abdominal pain, Denies nausea and Denies vomiting Psychiatric Psychiatric: Denies depression [facility] Medical History (Updated 07/04/20 @ 21:47 by Tobias Luis MD) Multiple substance abuse Reactive airway disease Tobacco dependence Social History Smoking/Tobacco Use Status: Current every day Tobacco Type: cigarettes Smoking risk assessment performed?: Yes Alcohol Intake: current Alcohol Intake frequency: a few times a month Drug use: Current Sobriety Substance use type: marijuana Do you feel safe at home: Yes Do you feel safe in your relationship?: Yes Additional Social history: is Homeless Exam Const General: no acute distress Orientation: alert HENMT Head: normal to inspection Ears: external ears normal General nose exam: external nose normal Mouth: moist mucous membranes Eyes General: appearance normal, both eyes and all related structures Neck Neck: normal visual inspection Resp Effort & Inspection: normal respiratory effort and able to speak in complete sentences Cardio Rate: regular rate Skin General skin exam: no rashes or lesions noted Neuro General: patient alert and patient oriented x3 Extrem General: normal to inspection Psych Mental Status: mental status grossly normal
[2020-07-04 21:37] VITALS: BP 104/62; PULSE 110; RESP 18; TEMP 36.6; O2SAT 98
[2020-07-04] MEDS: Albuterol HFA 8 GM 60 PUFF INH IH (21:49)
[2020-07-04] MEDS: predniSONE 20 MG TAB 60 MG PO (21:50)
[2020-07-04] MEDS: Inhaler, Assist Device 1 EACH MC (21:50)
[2020-07-04] MEDS: Amoxicillin 875/Clav. 125 TAB PO (21:50)
[2020-07-04 21:59] VITALS: BP 104/62; PULSE 110; RESP 18; TEMP 36.6; O2SAT 98
== END 2020-07-04 22:00 | disposition home or self-care (01) ==
LOC: ER 21:42
PROVIDERS: Emergency Provider Emergency Medicine; PCP Physician Assistant
DX: K08.89 Other specified disorders of teeth and supporting structures (principal); J45.909 Unspecified asthma, uncomplicated
CPT/HCPCS: 99283; J7512

== ENCOUNTER 2020-08-13 21:49 | Emergency (ER) | payer MEDICAID, SELFPAY ==
[2020-08-13 21:55] VITALS: BP 137/79; PULSE 80; RESP 18; TEMP 36.7; O2SAT 98
--- NOTE | 2020-08-13 22:00 | DI.RAD_ITS ---
Exam(s) XR CHEST 2V PA LATERAL EXAM: XR CHEST 2V PA LATERAL CLINICAL HISTORY: cough for 1 month, productive TECHNIQUE: 2D digital imaging was performed. COMPARISON: CR XR CHEST 2V PA LATERAL from 02/10/2019 CR,XR XR PORTABLE CHEST AP from 03/09/2020 FINDINGS: MEDIASTINUM: Normal. HEART: Normal. PULMONARY VASCULATURE: Normal. LUNGS: Clear. PLEURAL SPACE: No pleural effusion or pneumothorax. BONE:Within normal limits for the patient's age. Stable appearance of the right clavicle. OTHER FINDINGS:Normal. IMPRESSION: No acute pulmonary findings. DATA REPOSITORY: RADIATION DOSE DELIVERED:
--- NOTE | 2020-08-13 22:04 | W.ED.GENAD ---
Discharge Plan Disposition Patient Disposition: HOME Condition: Good Discharge Details Clinical Impression: Bronchitis Primary Care Provider: Gregorio Morales ED Provider: López James Home Meds and New Rx's Prescriptions: New levofloxacin 750 mg tablet 750 mg PO DAILY Qty: 9 RF: 0 Continued albuterol sulfate 8.5 GM HFA aerosol inhaler 2 puff Inhalation Q4H PRN PRNQty: 1 RF: 0 buprenorphine-naloxone [Suboxone] 8-2 mg film 1 film buccal DAILY RF: 0 gabapentin 800 mg tablet 800 mg PO DAILY RF: 0 albuterol sulfate 90 mcg/actuation HFA aerosol inhaler 2 puff inhalation Q6H PRN (Reason: shortness of breath or wheezing) Qty: 6.7 RF: 0 Discharge Instructions Instructions: Acute Bronchitis (ED) Additional Instructions: At this time there is no evidence of large severe pneumonia however there may be a small amount of pneumonia noted on the x-ray. The best thing that you can do for the recovery of your symptoms is to stop smoking. In the meantime please take the antibiotic as directed. This antibiotic may cause some pain or irritation to your tendons or ligaments. If you notice any pain or tenderness in your ligaments please do not perform any additional vigorous activities and stop taking the antibiotic follow-up closely with the physician. we have sent a prescription to your pharmacy [facility]. Continue using your inhaler with the spacer 2 puffs every 4 hours for the next few days. If you notice any worsening of your symptoms, or any new symptoms such as vomiting, diarrhea, fever, chills, shortness of breath, chest pain, numbness, weakness, or fainting , please return immediately to the emergency department for reevaluation. Please follow up with your primary care provider as soon as possible for reassessment and reevaluation. As always, it was a pleasure participating in your medical care today. Referrals: Gregorio Morales [Primary Care Provider] - Medical Decision Making 30-year-old male with a past medical history of pack per day tobacco use, asthma, methadone use, who presents today for evaluation of cough. Patient states that 1 month ago he was seen and assessed here, at that time he had a mild cough, as well as mild dental pain. He was prescribed steroids, Augmentin and he has an inhaler at home already. He is taking this as directed and those medications did slightly improve his symptoms for the first week or so however his cough has been persistent and is now worsening. He denies any fever or chills but he does admit to productivity for his cough. He states that he has been coughing up green and black sputum. He denies any hemoptysis. He denies any chest pain but does admit to a sore throat from all the coughing. He has been taking honey and Mucinex without any improvement. No other complaints at this time. No other modifying factors. Denies PE risk factors such as recent long car rides, immobilization, recent surgery, prior history of DVT or PE, family history of PE or DVT, morbid obesity, exogenous estrogen and smoking, hemoptysis, history of cancer. Physical exam demonstrates no significant rhonchi or rails. Minimal wheeze which is very subtle. No retractions. Posterior oropharynx is mildly red, no tonsillar enlargement. Clinically suggestive of chronic cough. Bedside ultrasound was performed and there was no large infiltrates noted. No significant B-lines. We will get an x-ray for further assessment. Symptoms may be secondary to recurrent/chronic bronchitis at this point. The patient still does smoke 1 pack/day. I have encouraged him to cessation of his smoking. No fever, vital signs stable, symptoms inconsistent with PE, dissection or pneumothorax. 10:30 PM X-ray results are returned negative for acute process. At this time as the patient was prescribed Augmentin before he may not have had the adequate atypical coverage that was needed as evidenced by his lack of improvement. We will add Levaquin for treatment regiment for suspected bronchitis versus mild potential pneumonia. Recommend continuation for his inhaler. He shows no evidence of hypoxemia tachycardia or fever here. No indication for admission. I had a long discussion with the patient regarding the importance of smoking cessation. I have extensively reviewed the treatment plan and discharge instructions with the patient. I have addressed all patient concerns at this time. The patient was made aware of what symptoms to monitor for that would warrant a return to the emergency department. Discussed the plan with the patient, they demonstrate verbal understanding and agreement with our assessment and plan at this time. The documentation in this chart was dictated using [employer] dictation software. Please excuse any dictation errors. FINDINGS: Lungs: No consolidation. Pleural spaces: Unremarkable. No pleural effusion. No pneumothorax. Heart/Mediastinum: Unremarkable. No cardiomegaly. Bones/joints: Deformity of the right distal clavicle, likely chronic. IMPRESSION: No infiltrates or effusions. Thank you for allowing us to participate in the care of your patient. Dictated and Authenticated by: Steven Alicea MD 08/13/2020 11:10 PM Eastern Time ([place] & [place]) HPI General Date/Time Provider Initiated Documentation: 08/13/20 21:50. HPI Narrative: 30-year-old male with a past medical history of pack per day tobacco use, asthma, methadone use, who presents today for evaluation of cough. Patient states that 1 month ago he was seen and assessed here, at that time he had a mild cough, as well as mild dental pain. He was prescribed steroids, Augmentin and he has an inhaler at home already. He is taking this as directed and those medications did slightly improve his symptoms for the first week or so however his cough has been persistent and is now worsening. He denies any fever or chills but he does admit to productivity for his cough. He states that he has been coughing up green and black sputum. He denies any hemoptysis. He denies any chest pain but does admit to a sore throat from all the coughing. He has been taking honey and Mucinex without any improvement. No other complaints at this time. No other modifying factors. Denies PE risk factors such as recent long car rides, immobilization, recent surgery, prior history of DVT or PE, family history of PE or DVT, morbid obesity, exogenous estrogen and smoking, hemoptysis, history of cancer. Related Data Home Medications Medication Instructions Recorded Confirmed albuterol sulfate 2 puff INHALATION Q4H PRN PRN #1 02/26/14 08/13/20 [email or web address] albuterol sulfate 2 puff INHALATION Q6H PRN #6.7 g 03/09/20 08/13/20 buprenorphine-naloxone [Suboxone] 1 film BUCCAL DAILY 03/09/20 08/13/20 gabapentin 800 mg PO DAILY 03/09/20 08/13/20 levofloxacin 750 mg PO DAILY #9 tab 08/13/20 Previous Rx's Medication Instructions Recorded albuterol sulfate 2 puff INHALATION Q4H PRN PRN #1 02/26/14 [email or web address] albuterol sulfate 2 puff INHALATION Q6H PRN #6.7 g 03/09/20 levofloxacin 750 mg PO DAILY #9 tab 08/13/20 Allergies Allergy/AdvReac Type Severity Reaction Status Date / Time No Known Allergies Allergy Unverified 08/13/20 21:59 General Stated Complaint: RespSymp HUNTER: 3 Review of Systems All systems reviewed & are unremarkable except as noted in HPI and below PFSH Medical History (Updated 08/13/20 @ 22:50 by López James DO) Multiple substance abuse Reactive airway disease Tobacco dependence Social History Smoking/Tobacco Use Status: Current every day Tobacco Type: cigarettes Smoking risk assessment performed?: Yes Alcohol Intake: current Alcohol Intake frequency: a few times a month Drug use: Occasionally Substance use type: marijuana Do you feel safe at home: Yes Do you feel safe in your relationship?: Yes Additional Social history: is Homeless Exam Narrative Exam Narrative: 1.Const: Well-nourished, Well-developed, appearing stated age 2.Eyes: PERRL, no conjunctival injection, and symmetrical lids. 3.ENT: Atraumatic external nose and ears. Moist MM. Neck: Symmetric, trachea midline, No thyromegaly. 4.CVS: +S1/S2, No murmurs or gallops. Peripheral pulses 2+ and equal in all extremities. Brisk capillary refill in all extremities. 5.RESP: Unlabored respiratory effort. Minimal wheeze which is very subtle, no crackles or rhonchi. 6.GI: Soft, Nontender/Nondistended, No hepatosplenomegaly. No guarding or rebound. 7.MSK: Normocephalic/Atraumatic, Extremities w/o deformity or ttp No cyanosis or clubbing, Normal movement of all extremities 8.Skin: Warm, Dry. No rashes or lesions. 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 Sensation grossly intact, no focal neurologic deficits. 10.Psych: (AAO) x3. Appropriate mood and affect Course Vital Signs Vital signs: Vital Signs Temperature 36.7 C 08/13/20 21:55 Pulse 80 08/13/20 21:55 Respiratory Rate 18 08/13/20 21:55 Blood Pressure 137/79 08/13/20 21:55 Pulse Oximetry 98 08/13/20 21:55 Temperature 36.7 C 08/13/20 21:55 Temperature Source Rectal 08/13/20 21:55 Pulse 80 08/13/20 21:55 Respiratory Rate 18 08/13/20 21:55 Blood Pressure 137/79 08/13/20 21:55 Pulse Oximetry 98 08/13/20 21:55 Oxygen Delivery Method Room Air 08/13/20 21:55 Oxygen Flow Rate 0 08/13/20 21:55
--- NOTE | 2020-08-13 22:12 | NUR.NOTE ---
Nursing Note: pt states he has not had the COVID shot. Offered and patient declined.
[2020-08-13 22:18] LABS: Source Nasal/Nares
[2020-08-13 22:47] VITALS: PULSE 82; RESP 18; TEMP 36.9; O2SAT 99
[2020-08-13] MEDS: levoFLOXacin 500 MG, levoFLOXacin 250 MG 750 MG PO (22:57)
[2020-08-13 23:08] LABS: COVID-19 PCR Negative (Negative)
--- NOTE | 2020-08-13 23:10 | DI.VRAD_ITS ---
PROCEDURE INFORMATION: Exam: XR Chest Exam date and time: 08/13/2020 10:02 PM Age: 30 years old Clinical indication: Patient HX: Productive cough 1month TECHNIQUE: Imaging protocol: XR of the chest. Views: 2 views. COMPARISON: CR XR PORTABLE CHEST AP 03/09/2020 8:52 PM FINDINGS: Lungs: No consolidation. Pleural spaces: Unremarkable. No pleural effusion. No pneumothorax. Heart/Mediastinum: Unremarkable. No cardiomegaly. Bones/joints: Deformity of the right distal clavicle, likely chronic. IMPRESSION: No infiltrates or effusions. Dictated and Authenticated by: Steven Alicea MD. Ordering:UBALDO Dawn MD
== END 2020-08-13 23:05 | disposition home or self-care (01) ==
PROVIDERS: Emergency Provider Student in an Organized Health Care Education/Training Program; PCP Physician Assistant
DX: J20.8 Acute bronchitis due to other specified organisms (principal); F17.210 Nicotine dependence, cigarettes, uncomplicated; Z03.818 Encounter for observation for suspected exposure to other biological agents ruled out
CPT/HCPCS: 87635; 99283; 71046

== ENCOUNTER 2021-07-02 19:58 | Emergency (ER) | payer MEDICAID, SELFPAY ==
[2021-07-02 20:03] VITALS: BP 135/74; PULSE 70; RESP 19; TEMP 36.5; O2SAT 99
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
[2021-07-02] MEDS: Doxycycline Hyclate 100 MG, 2 CAPS/BTL PO (20:19)
== END 2021-07-02 20:18 | disposition home or self-care (01) ==
PROVIDERS: Emergency Provider Emergency Medicine; PCP Physician Assistant
DX: J20.9 Acute bronchitis, unspecified (principal)
CPT/HCPCS: 99283

== ENCOUNTER 2021-08-07 23:01 | Emergency (ER) | payer MEDICAID, SELFPAY ==
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
[2021-08-07 23:06] VITALS: BP 135/100; PULSE 107; RESP 20; TEMP 36.5; O2SAT 95
[2021-08-07 23:08] VITALS: RESP 18
[2021-08-07] MEDS: Inhaler, Assist Device 1 EACH MC (23:29)
[2021-08-07] MEDS: predniSONE 20 MG TAB 60 MG PO (23:29)
[2021-08-07] MEDS: Amoxicillin 875/Clav. 125 TAB PO (23:29)
[2021-08-07] MEDS: Albuterol HFA 8 GM 60 PUFF INH IH (23:29)
--- NOTE | 2021-08-10 15:47 | CMACTNOTE_ITS ---
- If Service Date Differs Date of service: 08/10/21 Time of Service: 15:47 Care Management Activity Note Gregorio is seen in the ED for bronchitis. At the request of ED provider, [facility] coordinates a referral to Shyann Arora MD, of [facility], on-call provider, to assist Gregorio in obtaining a follow up appointment and in establishing care with a local PCP. He has Medicaid for insurance.
== END 2021-08-07 23:46 | disposition home or self-care (01) ==
LOC: ER 23:30
PROVIDERS: Emergency Provider Physician Assistant; PCP Physician Assistant
DX: F17.210 Nicotine dependence, cigarettes, uncomplicated; J40 Bronchitis, not specified as acute or chronic
CPT/HCPCS: 99283; J7512

== ENCOUNTER 2021-09-14 20:53 | Emergency (ER) | payer MEDICAID, SELFPAY ==
[2021-09-14 20:57] VITALS: BP 153/76; PULSE 88; RESP 16; TEMP 36.2; O2SAT 97
--- NOTE | 2021-09-14 21:15 | DI.RAD_ITS ---
Exam(s) XR FOOT RT COMPLETE EXAM: XR FOOT RT COMPLETE CLINICAL HISTORY: trauma to medial foot. TECHNIQUE: 2D digital imaging was performed of the right foot. Three images were obtained. AP, obl ique and lateral views were obtained. COMPARISON: No exams were available for comparison FINDINGS: BONES: No acute fracture is present. No bony destructive lesion is seen. JOINTS: No dislocation present. SOFT TISSUE: Normal. IMPRESSION: Unremarkable radiographs of the right foot. DATA REPOSITORY: RADIATION DOSE DELIVERED:
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
[2021-09-14 22:55] VITALS: BP 153/76; PULSE 88; RESP 16; TEMP 36.2; O2SAT 97
[2021-09-14] MEDS: Ketorolac 30 MG/ML VIAL IM (22:55)
== END 2021-09-14 22:50 | disposition home or self-care (01) ==
PROVIDERS: Emergency Provider Nurse Practitioner Family; PCP Physician Assistant
DX: S97.81XA Crushing injury of right foot, initial encounter (principal); F17.210 Nicotine dependence, cigarettes, uncomplicated; X58.XXXA Exposure to other specified factors, initial encounter
CPT/HCPCS: 96372; 99284; 73630; J1885

== ENCOUNTER 2021-12-20 03:09 | Emergency (ER) | payer MEDICAID, SELFPAY ==
[2021-12-20 03:14] VITALS: BP 136/102; PULSE 89; RESP 16; TEMP 36.9; O2SAT 97
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
[2021-12-20] MEDS: Albuterol HFA 8 GM 60 PUFF INH IH (03:29)
[2021-12-20] MEDS: Inhaler, Assist Device 1 EACH MC (03:29)
[2021-12-20] MEDS: Doxycycline Hyclate 100 MG, 2 CAPS/BTL PO (03:30)
== END 2021-12-20 03:37 | disposition home or self-care (01) ==
PROVIDERS: Emergency Provider Student in an Organized Health Care Education/Training Program; PCP Physician Assistant
DX: J18.9 Pneumonia, unspecified organism (principal); J45.909 Unspecified asthma, uncomplicated; F17.210 Nicotine dependence, cigarettes, uncomplicated; Z28.310 Unvaccinated for COVID-19; Z79.52 Long term (current) use of systemic steroids
CPT/HCPCS: 76604; 99284

== ENCOUNTER → 2023-04-08 12:09 | Outpatient (CLI) | payer MEDICAID, SELFPAY ==
--- NOTE | 2023-04-08 09:33 | DI.RAD_ITS ---
Exam(s) XR KNEE RT 3V AP,LAT,JORGE EXAM: XR KNEE RT 3V AP,LAT,JORGE CLINICAL HISTORY: PAIN RT KNEE M25.561. TECHNIQUE: 2D digital imaging was performed. COMPARISON: No exams were available for comparison FINDINGS: 3 views No evidence of fracture but there is a joint effusion signifying internal derangement. Bone density normal. No osseous lesions. No osteochondral defects. No joint space narrowing and no radiopaque d ensities evident within the joint space. IMPRESSION: No significant osseous findings but there is a joint effusion noted. This may signify an internal de rangement. Appropriate follow-up is recommended. DATA REPOSITORY: RADIATION DOSE DELIVERED:
== END ==
PROVIDERS: PCP Physician Assistant; Visit Provider Physician Assistant Medical
DX: M25.561 Pain in right knee (principal)
CPT/HCPCS: 73562

== ENCOUNTER 2023-09-20 13:53 | Emergency (ER) | payer MEDICAID, SELFPAY ==
[2023-09-20 14:12] VITALS: BP 119/71; PULSE 84; RESP 16; TEMP 37; O2SAT 97
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
== END 2023-09-20 16:15 | disposition home or self-care (01) ==
LOC: ER 16:02
PROVIDERS: Emergency Provider Emergency Medicine; PCP Nurse Practitioner Family
DX: S60.052A Contusion of left little finger without damage to nail, initial encounter (principal); W23.0XXA Caught, crushed, jammed, or pinched between moving objects, initial encounter; Y93.H2 Activity, gardening and landscaping; Y92.89 Other specified places as the place of occurrence of the external cause
CPT/HCPCS: 99283; 73130; 73140

== ENCOUNTER 2023-10-18 18:47 | Outpatient (REF) | payer MEDICAID, SELFPAY ==
[2023-10-18 16:57] LABS: ALT 59 U/L (16-63); AST 50 U/L (15-37); Albumin 3.9 g/dL (3.4-5.0); Alkaline Phosphatase 76 U/L (46-116); BUN 14 mg/dL (7-18); Bilirubin, Total 1.07 mg/dL (0.2-1.0); CREATININE 0.8 mg/dL (0.70-1.30); Calcium 9.3 mg/dL (8.5-10.1); Calculated LDL 115 mg/dL (<100); Chloride 102 mmol/L (98-107); Cholesterol 172 mg/dL (<200); Glucose 99 mg/dL (74-106); HDL Cholesterol 44 mg/dL (40-60); Potassium 4.3 mmol/L (3.5-5.1); Sodium 140 mmol/L (136-145); TSH (W/Ref FT4) 1.65 uIU/mL (0.36-3.74); Total Protein 7.4 g/dL (6.4-8.2); Triglyceride 68 mg/dL (<150); Vitamin B12 617 pg/mL (193-986)
[2023-10-21 12:32] LABS: Hepatitis A Antibody IgM Negative (Negative); Hepatitis B Core Antibody Negative (Negative); Hepatitis B surface Ag Negative (Negative); Hepatitis C Ab w Rflx HCV PCR Reactive (Negative)
[2023-10-23 13:05] LABS: HCV RNA Qualitative Detected (Undetected)
== END 2023-10-18 18:48 | disposition home or self-care (01) ==
LOC: LBN 18:47
PROVIDERS: PCP Nurse Practitioner Family; Visit Provider Nurse Practitioner Family
DX: Z00.00 Encounter for general adult medical examination without abnormal findings (principal)
CPT/HCPCS: 80053; 80061; 82306; 86704; 86709; 86803; 87340; 87522; 82607; 84443

== ENCOUNTER 2023-11-18 10:18 | Outpatient (CLI) | payer MEDICAID, SELFPAY ==
[2023-11-18 10:16] LABS: Abs Immature Grans 0.01 10^3/uL (0.0-0.06); Absolute Basophil Count 0.07 10^3/uL (0.0-0.2); Absolute Eosinophil Count 0.28 10^3/uL (0.0-0.7); Absolute Lymphocyte Count 2.63 10^3/uL (1.2-3.4); Absolute Monocyte Count 0.57 10^3/uL (0.1-0.8); Absolute Neutrophil Count 3.78 10^3/uL (1.2-6.7); Eosinophils % 3.8 %; HCT 46.1 % (40.0-50.0); HGB 15.3 g/dL (13.5-17.5); Immature Grans % 0.1 %; Lymphocytes % 35.8 %; MCH 30.5 pg (27.0-33.0); MCHC 33.2 % (32.0-36.0); MCV 92 fL (80-95); MPV 9.2 fL (8.0-11.0); Monocytes % 7.8 %; Neutrophils % 51.5 %; Platelet Count 255 10^3/uL (130-400); RBC 5.02 10^6/uL (4.36-5.78); RDW 13.2 % (11.8-14.1); RDW-SD 44.8 fL; WBC 7.34 10^3/uL (4.4-10.8)
[2023-11-20 19:14] LABS: HCV Genotype 1a (Undetected)
== END 2023-11-18 10:19 | disposition home or self-care (01) ==
LOC: LBO 10:19
PROVIDERS: PCP Nurse Practitioner Family; Visit Provider Nurse Practitioner Family
DX: Z00.00 Encounter for general adult medical examination without abnormal findings (principal)
CPT/HCPCS: 36415; 85025; 87521

== ENCOUNTER 2024-04-02 22:34 | Emergency (ER) | payer MEDICAID, SELFPAY ==
[2024-04-02] VITALS (9 sets, daily range): BP systolic 118–121; BP diastolic 71–100; PULSE 60–77; RESP 20; O2SAT 88–98
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
[2024-04-02 23:22] LABS: Abs Immature Grans 0.03 10^3/uL (0.0-0.06); Absolute Eosinophil Count 0.34 10^3/uL (0.0-0.7); Absolute Lymphocyte Count 3.59 10^3/uL (1.2-3.4); Absolute Monocyte Count 0.71 10^3/uL (0.1-0.8); Absolute Neutrophil Count 4.79 10^3/uL (1.2-6.7); Eosinophils % 3.6 %; HCT 46.8 % (40.0-50.0); HGB 15.3 g/dL (13.5-17.5); Immature Grans % 0.3 %; Lymphocytes % 37.6 %; MCH 30.2 pg (27.0-33.0); MCHC 32.7 % (32.0-36.0); MCV 92 fL (80-95); MPV 8.6 fL (8.0-11.0); Monocytes % 7.4 %; Neutrophils % 50.1 %; Platelet Count 324 10^3/uL (130-400); RBC 5.07 10^6/uL (4.36-5.78); RDW 13.2 % (11.8-14.1); RDW-SD 44.6 fL; WBC 9.56 10^3/uL (4.4-10.8)
[2024-04-02] MEDS: Omnipaque 350 MG/ML 100 ML BTL IJ (23:45)
[2024-04-02] MEDS: Normal Saline - Diluent 50 ML VIAL IJ (23:46)
[2024-04-02] MEDS: Normal Saline Flush 10 ML SYR IVP (23:47)
[2024-04-02 23:49] LABS: INR 1.1 (0.9-1.1); Prothrombin Time 10.9 sec (9.1-11.1)
[2024-04-02 23:51] LABS: ALT 42 U/L (16-63); AST 27 U/L (15-37); Albumin 3.9 g/dL (3.4-5.0); Alkaline Phosphatase 110 U/L (46-116); Anion Gap 6.7 mmol/L (3-11); BUN 9 mg/dL (7-18); Bilirubin, Total 0.43 mg/dL (0.2-1.0); CO2 31.3 mmol/L (21.0-32.0); CREATININE 0.8 mg/dL (0.70-1.30); Calcium 8.8 mg/dL (8.5-10.1); Chloride 104 mmol/L (98-107); ETHANOL BLOOD 10.8 mg/dL (<10); Estimated GFR 118.36 (mL/min/1.73m2); Glucose 96 mg/dL (74-106); Magnesium 1.7 mg/dL (1.8-2.4); Potassium 3.4 mmol/L (3.5-5.1); Sodium 142 mmol/L (136-145); Total Protein 7.8 g/dL (6.4-8.2); Troponin I 7 ng/L (<or=76)
[2024-04-03] VITALS (17 sets, daily range): BP systolic 93–126; BP diastolic 67–88; PULSE 56–93; RESP 16; O2SAT 95–100
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
== END 2024-04-03 04:45 | disposition home or self-care (01) ==
PROVIDERS: Emergency Provider Emergency Medicine Emergency Medical Services; PCP Nurse Practitioner Family
DX: S00.81XA Abrasion of other part of head, initial encounter (principal); S20.212A Contusion of left front wall of thorax, initial encounter; R91.1 Solitary pulmonary nodule; F19.90 Other psychoactive substance use, unspecified, uncomplicated; F10.20 Alcohol dependence, uncomplicated; F17.210 Nicotine dependence, cigarettes, uncomplicated; Y04.2XXA Assault by strike against or bumped into by another person, initial encounter; Y93.89 Activity, other specified; Y92.89 Other specified places as the place of occurrence of the external cause
CPT/HCPCS: 36415; 74177; 80053; 86850; 86900; 86901; 99285; 70450; 71260; 72125; 80320; 83735; 84484; 85025; 85610; 99284; J3490

== ENCOUNTER 2024-07-03 10:25 | Emergency (ER) | payer MEDICAID, SELFPAY ==
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
[2024-07-03 10:33] VITALS: BP 158/92; PULSE 100; RESP 18; TEMP 37.2; O2SAT 98
--- NOTE | 2024-07-03 15:14 | W.ED.FU ---
Follow Up Plan: I called patient's PCP and left a message requesting assistance in following up the patient.
== END 2024-07-03 11:36 | disposition left against medical advice (07) ==
PROVIDERS: Emergency Provider Emergency Medicine; PCP Nurse Practitioner Family
DX: T19.4XXA Foreign body in penis, initial encounter (principal); W44.E9XA Other non-magnetic metal objects entering into or through a natural orifice, initial encounter; Z53.29 Procedure and treatment not carried out because of patient's decision for other reasons
CPT/HCPCS: 76857; 80048; 99284; 85025; 99283

== ENCOUNTER 2024-07-06 16:25 | Emergency (ER) | payer MEDICAID, SELFPAY ==
[2024-07-06 16:26] VITALS: BP 150/93; PULSE 83; RESP 12; TEMP 36.6; O2SAT 98
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
[2024-07-06] MEDS: Sulfameth/Trimeth DS, 2 TABS/BTL 1 TAB PO (17:20)
[2024-07-06 17:23] VITALS: BP 150/93; PULSE 83; RESP 12; TEMP 36.6; O2SAT 98
== END 2024-07-06 17:24 | disposition home or self-care (01) ==
PROVIDERS: Emergency Provider Physician Assistant; PCP Nurse Practitioner Family
DX: R31.9 Hematuria, unspecified (principal)
CPT/HCPCS: 99283; 99285

== ENCOUNTER 2024-09-11 08:34 | Emergency (ER) | payer OTHER, SELFPAY ==
[2024-09-11 08:36] VITALS: BP 160/116; PULSE 78; RESP 18; TEMP 36.7; O2SAT 98
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
[2024-09-11] MEDS: Acetaminophen 325 MG TAB 650 MG PO (08:51)
--- NOTE | 2024-09-11 09:05 | DI.RAD_ITS ---
Exam(s) XR WRIST RT COMPLETE EXAM: XR WRIST RT COMPLETE CLINICAL HISTORY: punched wall, pain to 4th/5th MCs and distal ulnar. TECHNIQUE: 2D digital imaging was performed. COMPARISON: No exams were available for comparison FINDINGS: 3 views No evidence of fracture or dislocation of the carpal bones. No significant ulnar variance. Bone density normal. No osseous lesions. Incidentally noted is an acute angulated fracture at the neck of the 5th metacarpal seen in the peripheral aspect of the field of view. IMPRESSION: No acute osseous findings in the wrist. Angulated acute fracture at the neck of the 5th metacarpal. DATA REPOSITORY: RADIATION DOSE DELIVERED:
--- NOTE | 2024-09-11 09:05 | DI.RAD_ITS ---
Exam(s) XR HAND RT COMPLETE EXAM: XR HAND RT COMPLETE CLINICAL HISTORY: punched wall, pain to 4th/5th MCs and distal ulna. TECHNIQUE: 2D digital imaging was performed. COMPARISON: CR XR FINGER LT LITTLE from 09/20/2023 FINDINGS: 3 views There is an acute fracture at the neck of the 5th metacarpal. There is volar angulation of the distal fragment. No dislocation of the metacarpophalangeal joint. No other fractures. No osseous lesions. No radiopaque foreign bodies. IMPRESSION: Fracture at the neck of the 5th metacarpal with volar angulation of the distal fragment. DATA REPOSITORY: RADIATION DOSE DELIVERED:
[2024-09-11 09:11] VITALS: BP 130/90
[2024-09-11] MEDS: Lidocaine 1% Pres-Free 5 ML VIAL 10 ML IJ (09:34)
[2024-09-11] MEDS: Ketorolac 30 MG/ML VIAL (09:34)
--- NOTE | 2024-09-11 09:45 | W.EDPROG ---
Date of service: 09/11/24 Time of Service: 09:46 Medical Decision Making I participated in this patient's care by assisting with a reduction of the dominant right fifth metacarpal neck fracture that was closed. There was mild improvement. Please see JALYN note for complete details. Patient was referred for orthopedic follow-up and images were reviewed in real-time with orthopedic PA. Discharge Plan Disposition Patient Disposition: Home Condition: Good Discharge Details Clinical Impression: Boxer's fracture Primary Care Provider: Cathleen Davidson ED Provider: Casi Tee Home Meds and New Rx's Prescriptions: New acetaminophen 325 mg capsule 650 mg PO Q6H Qty: 30 0RF No Action buprenorphine-naloxone [Suboxone] 8-2 mg film 1 film buccal DAILY Patient Comments: PLACE 2 FILMS UNDER THE TONGUE AND ALLOW TO DISSOLVE ONCE DAILY bupropion HCl 75 mg tablet 75 mg PO ONCE topiramate 25 mg tablet 25 mg PO BID Patient Comments: TAKE 1 TABLET BY MOUTH DAILY FOR 7 DAYS THEN INCREASE TO 1 TABLET TWICE DAILY Discharge Instructions Instructions: Hand Fracture ED Additional Instructions: Please follow-up with [facility] orthopedics in 1 week for repeat x-rays/reevaluation. Keep your splint clean and dry. Do not get it wet or put anything down the splint. Keep an eye out and your fingers, they should remain pink with good sensation and brisk capillary refill. You may use Tylenol 650 mg every 6 hours for pain control. Apply an ice pack to the outside of your splint for 15 to 20 minutes at a time every hour. Elevate hand above heart level to help with swelling and pain Return to emergency care if he notes any concerning signs of neurovascular compromise such as new severe pain, numbness/blueness/pallor/coldness to your fingers, or if you are very worried and need to be rechecked in the immediate Referrals: [facility] [Provider Group] Cathleen Davidson [Primary Care Provider, Medicine]
--- NOTE | 2024-09-11 09:57 | DI.RAD_ITS ---
Exam(s) XR HAND RT LIMITED EXAM: XR HAND RT LIMITED CLINICAL HISTORY: Post-reduction. TECHNIQUE: 2D digital imaging was performed. COMPARISON: CR XR HAND RT COMPLETE from 09/11/2024 FINDINGS: Two views-AP and lateral Post closed reduction images reveal some mild improvement in the amount of volar angulation at the fracture site at the neck of the 5th metacarpal. IMPRESSION: As above. DATA REPOSITORY: RADIATION DOSE DELIVERED:
--- NOTE | 2024-09-11 10:12 | DI.RAD_ITS ---
Exam(s) XR HAND RT COMPLETE EXAM: XR HAND RT COMPLETE CLINICAL HISTORY: post reduction films. TECHNIQUE: 2D digital imaging was performed. COMPARISON: CR XR HAND RT LIMITED from 09/11/2024 FINDINGS: Three in splint views On these images the amount of all are angulation at the fracture site of the neck of the 5th metacarpal appears similar to the original images. IMPRESSION: As above. DATA REPOSITORY: RADIATION DOSE DELIVERED:
[2024-09-11 10:30] VITALS: BP 138/107; PULSE 68; RESP 16; O2SAT 97
== END 2024-09-11 10:36 | disposition home or self-care (01) ==
PROVIDERS: Emergency Provider Nurse Practitioner Family; PCP Nurse Practitioner Family
DX: S62.336A Displaced fracture of neck of fifth metacarpal bone, right hand, initial encounter for closed fracture (principal); F17.210 Nicotine dependence, cigarettes, uncomplicated; W22.01XA Walked into wall, initial encounter; Y93.89 Activity, other specified; Y92.89 Other specified places as the place of occurrence of the external cause
CPT/HCPCS: 00123; 26600; 29125; 99283; 73110; 73120; 73130; J1885; J2003

== ENCOUNTER 2024-09-30 14:23 | Outpatient (CLI) | payer OTHER, SELFPAY ==
--- NOTE | 2024-09-30 13:45 | DI.RAD_ITS ---
Exam(s) XR HAND RT COMPLETE EXAM: XR HAND RT COMPLETE CLINICAL HISTORY: F/U FRACTURE. TECHNIQUE: 2D digital imaging was performed. Three views. COMPARISON: CR XR HAND RT COMPLETE from 09/11/2024 FINDINGS: BONES: The alignment of the distal 5th metacarpal fracture head/neck appears unchanged. No bony destructive lesion is seen. JOINTS: No dislocation present. SOFT TISSUE: Normal. IMPRESSION: Stable alignment of fracture at the distal 5th metacarpal. DATA REPOSITORY: RADIATION DOSE DELIVERED:
== END 2024-09-30 14:24 | disposition home or self-care (01) ==
LOC: DIORS 14:23
PROVIDERS: PCP Nurse Practitioner Family; Visit Provider Physician Assistant
DX: S62.339A Displaced fracture of neck of unspecified metacarpal bone, initial encounter for closed fracture (principal)
CPT/HCPCS: 73130

== ENCOUNTER 2024-10-26 09:30 | Outpatient (CLI) | payer OTHER, SELFPAY ==
--- NOTE | 2024-10-26 08:45 | DI.RAD_ITS ---
Exam(s) XR HAND RT COMPLETE EXAM: XR HAND RT COMPLETE CLINICAL HISTORY: F/U 5TH METACARPAL FX. TECHNIQUE: 2D digital imaging was performed of the right hand. Three images were obtained. AP, lateral and oblique views were obtained. COMPARISON: CR XR HAND RT COMPLETE from 09/30/2024 FINDINGS: BONES: There is stable alignment of the fracture involving the right 5th metacarpal. There is increased callus formation about the fracture consistent with continued healing. No bony destructive lesion is seen. JOINTS: No dislocation present. SOFT TISSUE: Normal. IMPRESSION: Continued healing and stable alignment of the 5th metacarpal fracture. DATA REPOSITORY: RADIATION DOSE DELIVERED:
== END 2024-10-26 09:31 | disposition home or self-care (01) ==
LOC: DIORS 09:31
PROVIDERS: PCP Nurse Practitioner Family; Visit Provider Physician Assistant
DX: S62.306A Unspecified fracture of fifth metacarpal bone, right hand, initial encounter for closed fracture (principal)
CPT/HCPCS: 73130